=== PATIENT | female | born 1970 | race Caucasian/White ===

== ENCOUNTER 2021-01-17 09:05 | Emergency (ER) | payer MEDICAID, SELFPAY ==
[2021-01-17] VITALS (7 sets, daily range): BP systolic 105–136; BP diastolic 68–89; PULSE 59–74; RESP 14–16; TEMP 36.4–36.7; O2SAT 97–100; BMI 26.0
--- NOTE | 2021-01-17 09:20 | EX.ED.DYSGE1 ---
HPI History of Present Illness Chief Complaint: Headache Detail of Chief Complaint: Patient presents with a headache x5 days Informant: patient Onset/Context/Timing Current Severity: 03/19 Narrative Narrative: Patient presents to the emergency department with 2 separate complaints. Patient states that she has had a headache for about 5 days that is typical of her migraines. Patient has taken Maxalt at home and has not had any improvement of her symptoms. She has had photophobia and nausea but no vomiting. She denies any falls or head injuries or recent illness. Patient also states that she has had abdominal pain for about 2 days in the left upper abdomen that is similar to what she had from prior adhesions that required surgical intervention. Patient denies vomiting. She has had normal bowel movements. Patient tells me that in 2009 she had a Vikram-en-Y gastric bypass surgery. Prior similar symptoms: Yes PFSH [facility] Medical History (Updated 01/17/21 @ 09:56 by Evelyn Saldivar) Fibromyalgia Reactive hypoglycemia Home Medications albuterol sulfate [ProAir HFA] 2 puff INHALATION Q6H PRN 01/17/21 [History Last Taken Unknown] aspirin 81 mg PO DAILY 01/17/21 [History Last Taken Unknown] carvedilol 3.125 mg PO BID 01/17/21 [History Last Taken Unknown] clonazepam 0.5 mg PO BID 01/17/21 [History Last Taken Unknown] gabapentin 300 mg PO BID 01/17/21 [History Last Taken Unknown] gabapentin 900 mg PO QHS 01/17/21 [History Last Taken Unknown] lisinopril 10 mg PO DAILY 01/17/21 [History Last Taken Unknown] multivitamin 1 tab PO DAILY 01/17/21 [History Last Taken Unknown] nadolol 20 mg PO DAILY 01/17/21 [History Last Taken Unknown] pantoprazole 40 mg PO DAILY 01/17/21 [History Last Taken Unknown] prochlorperazine maleate 10 mg PO Q6H PRN 01/17/21 [History Last Taken Unknown] quetiapine 50 mg PO QHS 01/17/21 [History Last Taken Unknown] rizatriptan 5 mg PO Q2H PRN 01/17/21 [History Last Taken Unknown] trazodone 100 mg PO DAILY 01/17/21 [History Last Taken Unknown] venlafaxine 100 mg PO BID 08/10/21 [History Last Taken Unknown] Allergy/AdvReac Type Severity Reaction Status Date / Time No Known Allergies Allergy Verified 01/17/21 09:06 Surgical History (Updated 01/17/21 @ 09:56 by Evelyn Saldivar) History of cholecystectomy History of D&C History of gastric bypass History of hysterectomy History of tonsillectomy Social History Smoking Status: Never smoker ROS ROS ED Constitutional Constitutional ED: Reports systems reviewed and no addt'l complaints, except as documented; Denies body ache(s), change in weight or chills Eyes Eyes: Denies acute decrease in peripheral vision, change in vision, double vision or loss of vision ENT ENT ED: Reports none; Denies ear pain, lip swelling, loss taste/smell, neck pain, otalgia or sore throat Cardiovascular Cardiovascular: Reports none; Denies abdominal pain, chest pain with activity, leg edema, lightheadedness, palpitations, rapid heart rate or syncope Respiratory/Chest Respiratory/Chest: Reports none; Denies change in mental status, dry cough, dyspnea, hemoptysis, shortness of breath at rest or shortness of breath with exertion Gastrointestinal Gastrointestinal: Reports none, abdominal pain and nausea; Denies change in stool character, diarrhea, hematemesis, hematochezia, melena, rectal bleeding or vomiting Genitourinary Genitourinary ED: Reports none; Denies abdominal discomfort, anuria, dysuria, genital pain or polyuria Musculoskeletal Musculoskeletal: Reports none; Denies arthralgias, back pain, difficulty walking, extremity pain, muscle weakness or myalgias Integumentary Reports none; Denies abscess or rash Neurologic Neurologic: Reports none and headache(s); Denies abnormal gait, confusion, focal weakness, frequent falls, loss of vision, numbness, paresthesias, radicular pain, vertigo or weakness Psychiatric Psychiatric: Reports systems reviewed and no addt'l complaints, except as documented and none; Denies behavioral changes, confusion, difficulty concentrating, hallucinations, suicidal ideation, tactile hallucinations or visual hallucinations Endocrine Endocrinology: Denies none, cold intolerance, excessive sweating, fatigue or heat intolerance Hematologic/Lymphatic Hematologic/Lymphatic: Reports none; Denies anemia, easy bleeding or easy bruising Allergic/Immunologic Allergic/Immunologic ED: Denies as per HPI, none, lip swelling, mouth swelling, throat swelling, tongue swelling or hives EXAM Physical Exam Const Vital Signs: 01/17/21 09:06 01/17/21 11:17 01/17/21 14:32 Temperature 97.6 F L Temperature Source Temporal Pulse Rate 65 74 59 L Respiratory Rate 16 16 14 Blood Pressure 123/84 H 136/89 H 119/70 Blood Pressure Mean 97 104 86 Pulse Ox 100 99 99 Oxygen Delivery Method Room Air Positive well nourished and well developed General Appearance ED: well developed and NAD HEENT Reports TM's clear and moist mucous membranes normocephalic and atraumatic; Negative for trauma or tenderness Tympanic Membrane ED: Yes TM's clear Eyes PERRL and EOMs intact bilaterally General Eye ED: Negative for pale conjunctiva or scleral icterus Neck no lymphadenopathy, supple and no JVD General: Negative for tenderness Chest Wall inspection of chest normal and palpation of chest normal Chest: Negative for tenderness Resp normal respiratory effort and clear to auscultation bilaterally Effort and Inspection: Negative for respiratory distress or pain with movement Auscultation: Negative for rhonchi, wheezes or diminished lung sounds Cardio regular rate, regular rhythm, S1 normal heart sound, S2 normal heart sound and no murmurs Peripheral Pulses: pulses 2+ throughout GI normal to inspection, nondistended, normoactive bowel sounds, soft to palpation, non-distended and no masses GI Narrative: Patient has tenderness palpation over the epigastric region left upper quadrant. There are some mild guarding. There is no rebound, rigidity, or peritoneal signs. Palpation: soft Back/Spine no CVA tenderness and no thoracic nor lumbar tenderness Extremity normal to inspection General Extremety ED: Negative for edema General Extremity: Negative for edema Neuro oriented x3, CN's II-XII intact bilaterally, no sensory deficits noted and gait normal Sensorium / Orientation: awake, alert, oriented to person, oriented to place and oriented to time Motor Exam: strength 5/5 throughout and strength abnormal Psych mental status grossly normal Skin no rashes or lesions noted and no wounds MDM MDM MDM Narrative Medical decision making narrative: Results discussed with patient. Patient's headache significantly improved after Reglan, Benadryl, and Toradol. CT scan of the abdomen pelvis showed inflammatory changes at the site of surgical anastomosis with circumferential thickening and mucosal edema involving the proximal jejunal loops in the left upper quadrant. Case discussed with general surgeon on-call Dr. Damaris Shore who asked that we transfer patient to tertiary center to be evaluated by bariatric surgeons. Patient would like to be transferred to [facility] as her last exploratory surgery was at one of their facilities. I discussed case with [facility] that we transfer patient to [place]. I discussed case with hospitalist there who was willing to accept the patient but first wanted to speak with her surgeon before they could accept her. Care of patient turned over to afternoon physician awaiting final acceptance and final disposition for transfer to [facility] facility. Lab Data Attestation: I reviewed the patient's lab results. Labs: Laboratory Results - last 24 hr 01/17/21 01/17/21 01/17/21 09:16 09:16 09:45 WBC 8.0 RBC 4.14 L Hgb 11.5 L Hct 37.3 MCV 90.1 MCH 27.8 MCHC 30.8 L RDW Std Deviation 43.1 RDW Coeff of Edda 13.1 Plt Count 258 MPV 10.5 Immature Gran % (Auto) 0.400 Neut % (Auto) 67.0 Lymph % (Auto) 22.3 [place] % (Auto) 8.9 Eos % (Auto) 1.1 Baso % (Auto) 0.3 Absolute Neuts (auto) 5.4 Absolute Lymphs (auto) 1.78 Nucleated RBC % 0 Sodium 141 Potassium 3.8 Chloride 106 Carbon Dioxide 32.0 Anion Gap 3 L BUN 12 Creatinine 0.67 Estim Creat Clear Calc 79.45 Est GFR (MDRD) Af Amer 120 Est GFR (MDRD) Non-Af 99 BUN/Creatinine Ratio 18.0 Glucose 69 L Lactic Acid 0.1 L Calcium 8.4 L Total Bilirubin 0.30 AST 23 ALT 38 Alkaline Phosphatase 62 Total Protein 6.6 Albumin 3.3 Globulin 3.3 Albumin/Globulin Ratio 1.0 Lipase 550 H Radiography Diagnostic Testing: Radiology Impression Abdomen/Pelvis CT 01/17/21 11:45 IMPRESSION: The patient is status post cholecystectomy and gastric bypass surgery. Mild degree of circumferential thickening and mucosal edema involving the proximal jejunal loops in the left upper quadrant. This is at the site of surgical anastomosis. Electronically Signed: Edmundo Klein MD at 12:42 EDT , Service support , Discharge Plan Triage Chief Complaint: Headache ED Provider: Heike Devlin Dx/Rx/DC Orders Instructions: ED, Migraine (Classical), Abdominal Pain Prescriptions: No Action multivitamin Tablet 1 tab PO DAILY RF: 0 clonazepam 0.5 mg Tablet 0.5 mg PO BID RF: 0 prochlorperazine maleate 10 mg Tablet 10 mg PO Q6H PRN (Reason: Nausea) RF: 0 carvedilol 3.125 mg Tablet 3.125 mg PO BID RF: 0 nadolol 20 mg Tablet 20 mg PO DAILY RF: 0 venlafaxine 100 mg Tablet 100 mg PO BID RF: 0 trazodone 100 mg Tablet 100 mg PO DAILY RF: 0 pantoprazole 40 mg Tablet,Delayed Release (Dr/Ec) 40 mg PO DAILY RF: 0 lisinopril 10 mg Tablet 10 mg PO DAILY RF: 0 gabapentin 300 mg Capsule 300 mg PO BID RF: 0 aspirin 81 mg Tablet 81 mg PO DAILY RF: 0 albuterol sulfate [ProAir HFA] 90 mcg/actuation Hfa Aerosol Inhaler 2 puff INHALATION Q6H PRN (Reason: Shortness Of Breath) RF: 0 rizatriptan 5 mg Tablet 5 mg PO Q2H PRN (Reason: Headache) RF: 0 gabapentin 300 mg Tablet 900 mg PO QHS RF: 0 quetiapine 50 mg Tablet Extended Release 24 Hr 50 mg PO QHS RF: 0 Referrals: ODILIA VILLANUEVA [Other] Disposition Disposition: Transfer to Another Type [facility]
[2021-01-17] MEDS: Ketorolac 15 MG/ML Vial IV (09:40)
[2021-01-17] MEDS: DiphenhydrAMINE 50 MG/ML Syringe 25 MG IV (09:40)
[2021-01-17] MEDS: Metoclopramide 10 MG/2 ML Vial IV (09:41)
--- NOTE | 2021-01-17 09:47 | ED.RN ---
PT IV INFILTRATED IN [facility]. IV REMOVED AND RESTARTED
[2021-01-17 09:50] LABS: Absolute Lymphocyte Count 1.78 X10^3/uL (0.83-4.51); Absolute Neutrophil Count 5.4 X10^3/uL (2.0-7.7); Basophil# 0.02 X10^3/uL; Basophil% 0.3 % (0-1); Eosinophil# 0.09 X10^3/uL; Eosinophils% 1.1 % (0-5); Hematocrit 37.3 % (37-47); Hemoglobin 11.5 g/dL (12.0-15.0); Lymphocyte # 1.78 X10^3/ul (0.83-4.51); Lymphocyte % 22.3 % (19-41); Mean Corp Hgb Conc 30.8 g/dL (32-36); Mean Corpuscular Hgb 27.8 pg (27.0-32.0); Mean Corpuscular Volume 90.1 fL (81-99); Mean Platelet Vol. 10.5 fl (6.2-12.0); Monocyte# 0.71 X10^3/uL; Monocyte% 8.9 % (0-10); NRBC Flagged by Analyzer 0 % (0-5); Neutrophil # 5.36 X10^3/uL (2.7-7.7); Platelet Count 258 K/mm3 (150-450); RBC Distribution Width CV 13.1 % (11.6-14.6); RBC Distribution Width SD 43.1 fl (35.1-43.9); Red Blood Count 4.14 M/mm3 (4.2-5.4)
[2021-01-17 10:02] LABS: AST(SGOT) 23 U/L (15-37); Alanine Aminotransfer ALT/SGPT 38 U/L (13-56); Albumin, Serum 3.3 g/dL (3.2-5.0); Alkaline Phosphatase 62 U/L (45-117); Anion Gap 3 (5-15); BUN 12 mg/dL (7-18); Calcium,Total 8.4 mg/dL (8.5-10.1); Chloride 106 mmol/L (98-107); Creatinine, Serum 0.67 mg/dL (0.55-1.02); EST Glomerular Filtration Rate 99 mL/min (>60); Est Glom Filt Rate - Afr Amer 120 mL/min (>60); Estimated Creatinine Clearance 79.45 ml/min; Globulin 3.3 g/dL (2.2-4.2); Glucose 69 mg/dL (74-106); Lipase 550 U/L (73-393); Potassium 3.8 mmol/L (3.5-5.1); Protein, Total 6.6 g/dL (6.4-8.2); Sodium Level 141 mmol/L (136-145)
[2021-01-17 10:35] LABS: Lactic Acid 0.1 mmol/L (0.4-1.9)
--- NOTE | 2021-01-17 11:45 | CT_ITS ---
STUDY: CT ABDOMEN AND PELVIS WITH CONTRAST REASON FOR EXAM: Female, 50 years old. Abdominal pain RADIATION DOSAGE (If Supplied By Facility): CTDIvol = ( 13.09 ) mGy, DLP = ( 480.13 ) mGycm TECHNIQUE: Transaxial images were obtained from the dome of the diaphragm to the symphysis pubis without oral contrast. Oral and amp; IV Gastrografin and amp; 100mL Isovue-300 was administered. Sagittal and coronal images were reconstructed. Individualized dose optimization techniques were used for this CT. COMPARISON: None. FINDINGS: The visualized lung bases are unremarkable. The visualized portions of the heart are within normal limits. Mildly dilated central intrahepatic biliary ducts most likely secondary to prior cholecystectomy. The proximal common bile duct measures 9.4 mm in transverse dimension. There are surgical clips in the gallbladder fossa consistent with a prior cholecystectomy. Normal spleen. Normal pancreas. There is a small, circumscribed, smooth, low attenuation left adrenal mass, consistent with an adrenal adenoma. It measures 8.7 mm. Normal right adrenal gland. Normal right kidney. Normal left kidney. The patient is status post subtotal gastrectomy and gastric bypass surgery. Mild degree of pleural thickening of the proximal jejunal loops in the left upper quadrant. Normal colon. The appendix is visualized and appears normal. Normal abdominal aorta. Normal inferior vena cava. Normal retroperitoneum. Normal urinary bladder. There is absence of the uterus consistent with a prior hysterectomy. Small amount of free fluid is seen in the cul-de-sac. Normal abdominal wall. There are mild degenerative changes of the visualized lumbar spine. CT/Abdomen/Pelvis WITH Contrast IMPRESSION: The patient is status post cholecystectomy and gastric bypass surgery. Mild degree of circumferential thickening and mucosal edema involving the proximal jejunal loops in the left upper quadrant. This is at the site of surgical anastomosis. Electronically Signed: Edmundo Klein MD at 12:42 EDT , Service support ,
--- NOTE | 2021-01-17 19:33 | ED.RN ---
CALLED TO CHECK ON A BED AND THE CLINIC SAID THEY WOULD CALL US WHEN THEY HAD A BED
--- NOTE | 2021-01-18 01:14 | ED.RN ---
PHYSICIANS CAME TO [employer] SALES REPRESENTATIVE A PATIENT, THAT REQUIRED THE WHOLE ENTIRE CREW TO GO ON. I DID CALL PHYSICIANS AND ASKED THEM TO PLEASE OUTSOURCE THIS THIS RIDE TIME WAS PUSHED BACK AND WE DO NOT HAVE A ETA CURRENTLY.
[2021-01-18 01:15] VITALS: BP 140/80; PULSE 61; RESP 16; O2SAT 98
[2021-01-18] MEDS: Metoclopramide 10 MG/2 ML Vial 5 MG IV (01:18)
[2021-01-18] MEDS: Ketorolac 15 MG/ML Vial IV (01:18)
[2021-01-18] MEDS: DiphenhydrAMINE 50 MG/ML Syringe 25 MG IV (01:19)
[2021-01-18 01:21] VITALS: BP 134/82; PULSE 98; RESP 16; TEMP 36.6; O2SAT 98
[2021-01-18 04:19] VITALS: RESP 14
[2021-01-18 05:00] VITALS: BP 146/84; PULSE 63; RESP 15; TEMP 37.1; O2SAT 98
[2021-01-18] MEDS: fentaNYL 100 MCG/2 ML Ampul 25 MCG IV (05:04)
== END 2021-01-18 05:51 | disposition other institution (70) ==
PROVIDERS: Emergency Provider Emergency Medicine
DX: R51.9 Headache, unspecified (principal); R10.9 Unspecified abdominal pain; M79.7 Fibromyalgia; Z98.84 Bariatric surgery status; Z79.82 Long term (current) use of aspirin; Z79.899 Other long term (current) drug therapy; Z90.49 Acquired absence of other specified parts of digestive tract; Z90.710 Acquired absence of both cervix and uterus
CPT/HCPCS: 74177; 80053; 83605; 83690; 85025; 87426; 96374; 96375; 96376; 99285; J7030; J7040; Q9967; A4216

== ENCOUNTER → 2021-05-12 10:32 | Outpatient (CLI) | payer MEDICAID, SELFPAY ==
[2021-05-12 11:07] LABS: Absolute Lymphocyte Count 1.92 X10^3/uL (0.83-4.51); Absolute Neutrophil Count 2.2 X10^3/uL (2.0-7.7); Basophil# 0.03 X10^3/uL; Basophil% 0.7 % (0-1); Eosinophil# 0.08 X10^3/uL; Eosinophils% 1.7 % (0-5); Hematocrit 33.3 % (37-47); Hemoglobin 10.7 g/dL (12.0-15.0); Lymphocyte # 1.92 X10^3/ul (0.83-4.51); Lymphocyte % 41.8 % (19-41); Mean Corp Hgb Conc 32.1 g/dL (32-36); Mean Corpuscular Hgb 27.7 pg (27.0-32.0); Mean Corpuscular Volume 86.3 fL (81-99); Mean Platelet Vol. 10.1 fl (6.2-12.0); Monocyte# 0.32 X10^3/uL; NRBC Flagged by Analyzer 0 % (0-5); Neutrophil # 2.23 X10^3/uL (2.7-7.7); Neutrophil % 48.6 % (47-70); Platelet Count 247 K/mm3 (150-450); RBC Distribution Width CV 13.2 % (11.6-14.6); RBC Distribution Width SD 41.4 fl (35.1-43.9); Red Blood Count 3.86 M/mm3 (4.2-5.4); White Blood Count 4.6 K/mm3 (4.4-11.0)
[2021-05-12 11:41] LABS: Vitamin D,25 Hydroxy 36.5 ng/mL
[2021-05-12 11:54] LABS: ALB/GLOB Ratio 1.1 RATIO (0.9-2.4); AST(SGOT) 28 U/L (15-37); Alanine Aminotransfer ALT/SGPT 36 U/L (13-56); Albumin, Serum 3.6 g/dL (3.2-5.0); Alkaline Phosphatase 74 U/L (45-117); Anion Gap 6 (5-15); BUN 11 mg/dL (7-18); BUN/Creat Ratio 16.9 RATIO (10-20); Calcium,Total 8.4 mg/dL (8.5-10.1); Chloride 104 mmol/L (98-107); Creatinine, Serum 0.65 mg/dL (0.55-1.02); EST Glomerular Filtration Rate 102 mL/min (>60); Est Glom Filt Rate - Afr Amer 124 mL/min (>60); Globulin 3.4 g/dL (2.2-4.2); Glucose 70 mg/dL (74-106); Potassium 3.9 mmol/L (3.5-5.1); Sodium Level 138 mmol/L (136-145); Thyroid Stim Hormone (TSH) 0.63 uIU/mL (0.358-3.74)
== END ==
PROVIDERS: PCP Family Medicine Geriatric Medicine; Visit Provider Family Medicine Geriatric Medicine
DX: I10 Essential (primary) hypertension (principal)
CPT/HCPCS: 36415; 80053; 82306; 84443; 85025

== ENCOUNTER → 2021-05-18 16:47 | Outpatient (CLI) | payer MEDICAID, SELFPAY ==
[2021-05-18 17:22] LABS: Absolute Lymphocyte Count 1.13 X10^3/uL (0.83-4.51); Absolute Neutrophil Count 3.1 X10^3/uL (2.0-7.7); Basophil# 0.03 X10^3/uL; Basophil% 0.6 % (0-1); Eosinophil# 0.08 X10^3/uL; Eosinophils% 1.7 % (0-5); Hematocrit 35.3 % (37-47); Hemoglobin 11.1 g/dL (12.0-15.0); Lymphocyte # 1.13 X10^3/ul (0.83-4.51); Lymphocyte % 23.5 % (19-41); Mean Corp Hgb Conc 31.4 g/dL (32-36); Mean Corpuscular Hgb 26.8 pg (27.0-32.0); Mean Corpuscular Volume 85.3 fL (81-99); Mean Platelet Vol. 9.7 fl (6.2-12.0); Monocyte# 0.42 X10^3/uL; Monocyte% 8.8 % (0-10); NRBC Flagged by Analyzer 0 % (0-5); Neutrophil # 3.13 X10^3/uL (2.7-7.7); Neutrophil % 65.2 % (47-70); Platelet Count 170 K/mm3 (150-450); RBC Distribution Width SD 40.4 fl (35.1-43.9); Red Blood Count 4.14 M/mm3 (4.2-5.4); White Blood Count 4.8 K/mm3 (4.4-11.0)
[2021-05-18 17:40] LABS: Anion Gap 6 (5-15); BUN 12 mg/dL (7-18); BUN/Creat Ratio 17.3 RATIO (10-20); Calcium,Total 8.8 mg/dL (8.5-10.1); Chloride 105 mmol/L (98-107); EST Glomerular Filtration Rate 95 mL/min (>60); Est Glom Filt Rate - Afr Amer 115 mL/min (>60); Glucose 74 mg/dL (74-106); Potassium 4.1 mmol/L (3.5-5.1); Sodium Level 138 mmol/L (136-145)
== END ==
PROVIDERS: PCP Family Medicine Geriatric Medicine; Referring Provider Family Medicine Geriatric Medicine; Visit Provider Family Medicine Geriatric Medicine
DX: I10 Essential (primary) hypertension (principal)
CPT/HCPCS: 36415; 80048; 85025; 87086; 87088

== ENCOUNTER → 2021-05-19 08:51 | Outpatient (CLI) | payer MEDICAID, SELFPAY ==
--- NOTE | 2021-05-19 08:54 | CT_ITS ---
STUDY: CT ABDOMEN AND PELVIS WITH CONTRAST REASON FOR EXAM: Female, 50 years old. ABD PAIN. History of prior gastric bypass surgery. RADIATION DOSAGE (If Supplied By Facility): CTDIvol = ( 14.93 ) mGy, DLP = ( 513.96 ) mGycm TECHNIQUE: Transaxial images were obtained from the dome of the diaphragm to the symphysis pubis with oral contrast. Oral and amp; IV Gastrografin and amp; 100mL Isovue-300 was administered. Sagittal and coronal images were reconstructed. Individualized dose optimization techniques were used for this CT. COMPARISON: Comparison is made with prior study dated 01/17/2021. FINDINGS: The visualized lung bases are unremarkable. The visualized portions of the heart are within normal limits. Normal liver. There are surgical clips in the gallbladder fossa consistent with a prior cholecystectomy. Normal spleen. Normal pancreas. Normal bilateral adrenal glands. Normal right kidney. Normal left kidney. The patient is status post gastric bypass surgery. There is evidence of intussusception in the proximal jejunum. Normal colon. The appendix is visualized and appears normal. Normal abdominal aorta. Normal inferior vena cava. Normal retroperitoneum. Normal urinary bladder. There is absence of the uterus consistent with a prior hysterectomy. Normal abdominal wall. Normal osseous structures. CT/Abdomen/Pelvis WITH Contrast IMPRESSION: Intussusception in the proximal jejunum. Electronically Signed: Edmundo Klein MD at 12:08 EST , Service support ,
== END ==
PROVIDERS: PCP Family Medicine Geriatric Medicine; Referring Provider Family Medicine Geriatric Medicine; Visit Provider Family Medicine Geriatric Medicine
DX: R10.9 Unspecified abdominal pain (principal)
CPT/HCPCS: 74177; Q9967

== ENCOUNTER 2021-06-27 14:06 | Outpatient (CLI) | payer MEDICAID, SELFPAY ==
--- NOTE | 2021-06-27 14:10 | RAD_ITS ---
STUDY: X-RAY - UNILATERAL RIBS ( LEFT ) WITH CHEST REASON FOR EXAM: Female, 50 years old. RIB PAIN TECHNIQUE - RIBS: 4 view(s) of the ribs. TECHNIQUE - CHEST: Single frontal view of the chest. COMPARISON: None. FINDINGS - RIBS: Normal visualized ribs without a demonstrated fracture. FINDINGS - CHEST: The lungs are clear and expanded. There is no demonstrated pleural abnormality. Normal size heart. Normal mediastinum and angelia. Normal visualized pulmonary arteries. Normal visualized aortic arch and descending thoracic aorta. Normal visualized thoracic spine. Normal visualized ribs, clavicles, and shoulders. There is no demonstrated abnormality of the visualized soft tissue structures of the upper abdomen. RAD/Ribs Uni Min 3V w/PA Chest IMPRESSION: RIBS: Normal x-ray examination of the ribs. CHEST: Normal x-ray examination of the chest. Electronically Signed: Deshawn Anne DO at 3:51 EST Tel , Service support ,
== END 2021-06-27 23:59 | disposition short-term general hospital (02) ==
PROVIDERS: PCP Family Medicine Geriatric Medicine; Referring Provider Family Medicine Geriatric Medicine; Visit Provider Family Medicine Geriatric Medicine
DX: R07.89 Other chest pain (principal)
CPT/HCPCS: 71101

== ENCOUNTER 2021-07-24 08:37 | Day surgery (SDC) | payer MEDICAID, SELFPAY ==
--- NOTE | 2021-07-24 | COLBX_PTH ---
PATIENT: JOSE ROSALES LOC: EN U#:[id number] AGE/SX: 50/F ROOM: RE07/24/[address]: Dr. Shabbir Lubin DO : 1970 BED: DIS: 07/24/2021 SPEC #: [id number] RECD: 07/24/21 13:15 STATUS: ODELL ZENON #: [id number] LEE ANN: 07/24/21 00:[address]: Shabbir Lubin DEPT: SURGICAL PATHOLOGY RECD BY: Benjie Chung ENTERED: 07/24/21 13:16 SP TYPE: COLON BX ANA M DR: Dr. Alexx Hall MD Tissues: COLON BIOPSY Procedures: Surgery Specimen Level IV HEADER OPERATION: Colonoscopy ? 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 SJ:jony 07/25/2021 MICROSCOPIC DESCRIPTION Slides are reviewed. GROSS DESCRIPTION Received in fixative is one container labeled with the patient's name and designated random colon. The specimen consists of multiple irregular fragments of light rg soft tissue that in aggregate measure 2 x 0.5 x 0.1 cm. The specimen is totally submitted in one cassette. / OTF:jony 07/24/2021 TC:5 CPT: 07640
[2021-07-24 09:05] VITALS: BP 136/74; PULSE 64; RESP 16; TEMP 36.3; O2SAT 100; BMI 25.0
[2021-07-24] MEDS: Lactated Ringers 1,000 ML 15 ML IV (09:23)
--- NOTE | 2021-07-24 11:08 | HP.PCM_ITS ---
History and Physical Date of Admission: 07/24/21 50-year-old presents here for evaluation of worsening abdominal pain. She has a history of of gastric bypass, fibromyalgia, anxiety, depression and chronic pain syndrome who has been worsening abdominal pain along with change in bowel habits. She has alternating constipation as diarrhea. She did have a colonoscopy over 10 years ago and that was normal. P. Patient denies vomiting. She has had normal bowel movements. Patient tells me that in 2009 she had a Vikram-en-Y gastric bypass surgery. PFSH PFSH Medical History Fibromyalgia Reactive hypoglycemia Allergy/AdvReac Type Severity Reaction Status Date / Time No Known Allergies Allergy Verified History of cholecystectomy History of D&C History of gastric bypass History of hysterectomy History of tonsillectomy Social History Smoking Status: Never smoker ROS ROS ED Constitutional Constitutional ED: Reports systems reviewed and no addt'l complaints, except as documented; Denies body ache(s), change in weight or chills Eyes Eyes: Denies acute decrease in peripheral vision, change in vision, double visio n or loss of vision ENT ENT ED: Reports none; Denies ear pain, lip swelling, loss taste/smell, neck pain, otalgia or sore throat Cardiovascular Cardiovascular: Reports none; Denies abdominal pain, chest pain with activity, leg edema, lightheadedness, palpitations, rapid heart rate or syncope Respiratory/Chest Respiratory/Chest: Reports none; Denies change in mental status, dry cough, dyspnea, hemoptysis, shortness of breath at rest or shortness of breath with exertion Gastrointestinal Gastrointestinal: Reports none, abdominal pain and nausea; Denies change in stool character, diarrhea, hematemesis, hematochezia, melena, rectal bleeding or vomiting Genitourinary Genitourinary ED: Reports none; Denies abdominal discomfort, anuria, dysuria, genital pain or polyuria Musculoskeletal Musculoskeletal: Reports none; Denies arthralgias, back pain, difficulty walking, extremity pain, muscle weakness or myalgias Integumentary Reports none; Denies abscess or rash Neurologic Neurologic: Reports none and headache(s); Denies abnormal gait, confusion, focal weakness, frequent falls, loss of vision, numbness, paresthesias, radicular pain, vertigo or weakness Psychiatric Psychiatric: Reports systems reviewed and no addt'l complaints, except as documented and none; Denies behavioral changes, confusion, difficulty concentrating, hallucinations, suicidal ideation, tactile hallucinations or visual hallucinations Endocrine Endocrinology: Denies none, cold intolerance, excessive sweating, fatigue or heat intolerance Hematologic/Lymphatic Hematologic/Lymphatic: Reports none; Denies anemia, easy bleeding or easy bruising Allergic/Immunologic Allergic/Immunologic ED: Denies as per HPI, none, lip swelling, mouth swelling, throat swelling, tongue swelling or hives EXAM Physical Exam Positive well nourished and well developed General Appearance ED: well developed and NAD HEENT Reports TM's clear and moist mucous membranes normocephalic and atraumatic; Negative for trauma or tenderness Tympanic Membrane ED: Yes TM's clear Eyes PERRL and EOMs intact bilaterally General Eye ED: Negative for pale conjunctiva or scleral icterus Neck no lymphadenopathy, supple and no JVD General: Negative for tenderness Chest Wall inspection of chest normal and palpation of chest normal Chest: Negative for tenderness Resp normal respiratory effort and clear to auscultation bilaterally Effort and Inspection: Negative for respiratory distress or pain with movement Auscultation: Negative for rhonchi, wheezes or diminished lung sounds Cardio regular rate, regular rhythm, S1 normal heart sound, S2 normal heart sound and no murmurs Peripheral Pulses: pulses 2+ throughout GI normal to inspection, nondistended, normoactive bowel sounds, soft to palpation, non-distended and no masses GI Narrative: . There is no rebound, rigidity, or peritoneal signs. Palpation: soft Back/Spine no CVA tenderness and no thoracic nor lumbar tenderness Extremity normal to inspection General Extremety ED: Negative for edema General Extremity: Negative for edema Neuro oriented x3, CN's II-XII intact bilaterally, no sensory deficits noted and gait normal Sensorium / Orientation: awake, alert, oriented to person, oriented to place and oriented to time Motor Exam: strength 5/5 throughout and strength abnormal Psych mental status grossly normal Skin no rashes or lesions noted and no wounds CT scan of the abdomen pelvis showed inflammatory changes at the site of surgical anastomosis with circumferential thickening and mucosal edema involving the proximal jejunal loops in the left upper quadrant. She says that the pain when she had CT scan was different than the pain she has now. This more associated with constipation or diarrhea. She will undergo colonoscopy. She was explained alternatives, risk, benefits including outstanding bleeding, infection, sepsis, perforation, need for emergent . She have an ASA of 2.
[2021-07-24 11:10] VITALS: BP 117/70; BP 136/74; PULSE 67; RESP 14; TEMP 36.4; O2SAT 100
[2021-07-24 11:15] VITALS: BP 122/78; BP 136/74; PULSE 65; RESP 16; O2SAT 100
--- NOTE | 2021-07-24 11:16 | OP.CCLET_ITS ---
02/26/2022 Alexx Hall MD [address] [place] [address] Re : Colonoscopy procedure for Maria Del Rosario Gamboa Dear Dr. Hall This procedure was performed on Saturday, July 24, 2021. My impressions and recommendations are as follows: Impressions : - Preparation of the colon was poor. - Redundant colon. - Stool in the recto-sigmoid colon, in the sigmoid colon, in the descending colon, at the splenic flexure, in the transverse colon and in the cecum. Biopsied. Recommendations : - Discharge patient to home. - Resume previous diet. - Continue present medications. - Await pathology results. - Repeat colonoscopy for surveillance based on pathology results. - Return to GI office tomorrow. My findings are described in the full procedure note, which is enclosed. If I can be of further assistance, please feel free to contact me at . Sincerely, Shabbir Lubin, 07/24/2021 11:15:20 AM This report has been signed electronically.
--- NOTE | 2021-07-24 11:16 | OP.COLON_ITS ---
Patient Name: Maria Del Rosario Gamboa Procedure Date: 07/24/2021 10:30 AM Date of : 1970 Age: 50 Procedure: Colonoscopy Indications: Abdominal pain in the left lower quadrant, Chronic diarrhea Providers: Shabbir Lubin DO Patient Profile: This is a 50 year old female. Refer to note in patient chart for documentation of history and physical. Last Colonoscopy: date unknown. Unable to locate last colonoscopy report. Complications: No immediate complications. Procedure: Pre-Anesthesia Assessment: - Prior to the procedure, a History and Physical was performed, and patient medications and allergies were reviewed. The risks and benefits of the procedure and the sedation options and risks were discussed with the patient. All questions were answered and informed consent was obtained. Patient identification and proposed procedure were verified by the physician in the pre-procedure area. Mental Status Examination: alert and oriented. Airway Examination: normal oropharyngeal airway and neck mobility. Respiratory Examination: clear to auscultation. CV Examination: normal. Prophylactic Antibiotics: The patient does not require prophylactic antibiotics. Prior Anticoagulants: The patient has taken no previous anticoagulant or antiplatelet agents. ASA Grade Assessment: II - A patient with mild systemic disease. After reviewing the risks and benefits, the patient was deemed in satisfactory condition to undergo the procedure. The anesthesia plan was to use moderate sedation / analgesia (conscious sedation). Immediately prior to administration of medications, the patient was re-assessed for adequacy to receive sedatives. The heart rate, respiratory rate, oxygen saturations, blood pressure, adequacy of pulmonary ventilation, and response to care were monitored throughout the procedure. The physical status of the patient was re-assessed after the procedure. After I obtained informed consent, the scope was passed under direct vision. Throughout the procedure, the patient's blood pressure, pulse, and oxygen saturations were monitored continuously. The colonoscope was introduced through the anus and advanced to the terminal ileum. The colonoscopy was performed without difficulty. The patient tolerated the procedure well. The quality of the bowel preparation was poor. Moderate Sedation: Moderate (conscious) sedation was administered by the endoscopy nurse and supervised by the endoscopist. The patient's oxygen saturation, heart rate, blood pressure and response to care were monitored. Total physician intraservice time was 15 minutes. Scope In: 10:40:47 AM Scope Withdrawal Time 0 hours 8 minutes 58 seconds Scope Out: 11:03:23 AM Total Procedure Duration Time 0 hours 22 minutes 36 seconds Findings: The perianal and digital rectal examinations were normal. The splenic flexure was significantly redundant. A moderate amount of stool was found in the recto-sigmoid colon, in the sigmoid colon, in the descending colon, at the splenic flexure, in the transverse colon and in the cecum, precluding visualization. Biopsies were taken with a cold forceps for histology. Verification of patient identification for the specimen was done. Estimated blood loss was minimal. Impression: - Preparation of the colon was poor. - Redundant colon. - Stool in the recto-sigmoid colon, in the sigmoid colon, in the descending colon, at the splenic flexure, in the transverse colon and in the cecum. Biopsied. Recommendation: - Discharge patient to home. - Resume previous diet. - Continue present medications. - Await pathology results. - Repeat colonoscopy for surveillance based on pathology results. - Return to GI office tomorrow. Procedure Code(s): --- Professional --- 39462, Colonoscopy, flexible; with biopsy, single or multiple 57329, 59, Moderate sedation services provided by the same physician or other qualified health daycare provider performing the diagnostic or therapeutic service that the sedation supports, requiring the presence of an independent trained observer to assist in the monitoring of the patient's level of consciousness and physiological status; initial 15 minutes of intraservice time, patient age 5 years or older CPT copyright 2017 [employer]. All rights reserved. The codes documented in this report are preliminary and upon editor in chief review may be revised to meet current compliance requirements. Shabbir Lubin DO 07/24/2021 11:15:20 AM This report has been signed electronically. Number of Addenda: 1 Note Initiated On: 07/24/2021 10:30 AM Addendum Number: 1 Addendum Date: 02/26/2022 6:49:59 AM MAC was used for sedation during this procedure. Shabbir Lubin DO 02/26/2022 6:50:03 AM This report has been signed electronically.
[2021-07-24 11:20] VITALS: BP 134/84; BP 136/74; PULSE 61; RESP 16; O2SAT 100
[2021-07-24 11:25] VITALS: BP 136/74; BP 142/86; PULSE 60; RESP 16; TEMP 36.6; O2SAT 100
[2021-07-24 12:00] VITALS: BP 136/74
== END 2021-07-24 23:59 | disposition home or self-care (01) ==
LOC: EN 08:38 → AC 08:42
PROVIDERS: PCP Family Medicine Geriatric Medicine; Referring Provider Family Medicine Geriatric Medicine; Visit Provider Internal Medicine Gastroenterology
PROC: 0DJD8ZZ Inspection of Lower Intestinal Tract, Via Natural or Artificial Opening Endoscopic (ICD-10-PCS; CPT 45378; principal; 2021-07-24 09:55)
DX: R10.32 Left lower quadrant pain (principal); Q43.8 Other specified congenital malformations of intestine; Z98.84 Bariatric surgery status; R19.7 Diarrhea, unspecified
CPT/HCPCS: 45380; 88305; J7120; J2405

== ENCOUNTER 2021-08-10 08:49 | Outpatient (CLI) | payer MEDICAID, SELFPAY ==
[2021-08-10 12:46] LABS: Absolute Lymphocyte Count 1.47 X10^3/uL (0.83-4.51); Basophil# 0.02 X10^3/uL; Basophil% 0.5 % (0-1); Eosinophil# 0.03 X10^3/uL; Eosinophils% 0.8 % (0-5); Hematocrit 35.1 % (37-47); Hemoglobin 11.1 g/dL (12.0-15.0); Lymphocyte # 1.47 X10^3/ul (0.83-4.51); Lymphocyte % 38.1 % (19-41); Mean Corp Hgb Conc 31.6 g/dL (32-36); Mean Corpuscular Hgb 26.4 pg (27.0-32.0); Mean Corpuscular Volume 83.4 fL (81-99); Mean Platelet Vol. 12.9 fl (6.2-12.0); Monocyte# 0.31 X10^3/uL; NRBC Flagged by Analyzer 0 % (0-5); Neutrophil # 2.03 X10^3/uL (2.7-7.7); Neutrophil % 52.6 % (47-70); Platelet Count 274 K/mm3 (150-450); RBC Distribution Width SD 42.5 fl (35.1-43.9); Red Blood Count 4.21 M/mm3 (4.2-5.4); White Blood Count 3.9 K/mm3 (4.4-11.0)
[2021-08-10 12:48] LABS: Vitamin D,25 Hydroxy 35.1 ng/mL
[2021-08-10 12:56] LABS: AST(SGOT) 28 U/L (15-37); Alanine Aminotransfer ALT/SGPT 39 U/L (13-56); Albumin, Serum 3.6 g/dL (3.2-5.0); Alkaline Phosphatase 66 U/L (45-117); Anion Gap 2 (5-15); BUN 9 mg/dL (7-18); BUN/Creat Ratio 10.8 RATIO (10-20); Calcium,Total 8.8 mg/dL (8.5-10.1); Chloride 108 mmol/L (98-107); Creatinine, Serum 0.83 mg/dL (0.55-1.02); EST Glomerular Filtration Rate 77 mL/min (>60); Est Glom Filt Rate - Afr Amer 93 mL/min (>60); Globulin 3.5 g/dL (2.2-4.2); Glucose 72 mg/dL (74-106); Potassium 3.9 mmol/L (3.5-5.1); Protein, Total 7.1 g/dL (6.4-8.2); Sodium Level 141 mmol/L (136-145); Thyroid Stim Hormone (TSH) 0.47 uIU/mL (0.358-3.74)
== END 2021-08-10 23:59 | disposition home or self-care (01) ==
LOC: POLAB3 08:50
PROVIDERS: PCP Family Medicine Geriatric Medicine; Visit Provider Family Medicine Geriatric Medicine
DX: E55.9 Vitamin D deficiency, unspecified (principal); R53.83 Other fatigue
CPT/HCPCS: 36415; 80053; 82306; 84443; 85025

== ENCOUNTER 2021-09-06 12:18 | Outpatient (CLI) | payer MEDICAID, SELFPAY | END 2021-09-06 23:59 | disposition home or self-care (01) | LOC: PSN 12:19 | PROVIDERS: PCP Family Medicine Geriatric Medicine; Referring Provider Family Medicine Geriatric Medicine; Visit Provider Family Medicine Geriatric Medicine | DX: R68.83 Chills (without fever) (principal); Z20.822 Contact with and (suspected) exposure to COVID-19 | CPT/HCPCS: 87635; 87804; 87807; C9803; U0003; U0005 ==

== ENCOUNTER → 2021-12-25 | Outpatient (CLI) | payer MEDICAID, SELFPAY ==
[2021-12-25 10:24] LABS: Vitamin B12 390 pg/mL (211-911)
[2021-12-25 10:44] LABS: Ferritin 5 ng/mL (8-252); Iron 36 ug/dL (50-170)
== END | disposition home or self-care (01) ==
PROVIDERS: PCP Family Medicine Geriatric Medicine; Referring Provider Psychiatry & Neurology Neurology; Visit Provider Psychiatry & Neurology Neurology
DX: R53.83 Other fatigue (principal); M79.7 Fibromyalgia; Z86.2 Personal history of diseases of the blood and blood-forming organs and certain disorders involving the immune mechanism
CPT/HCPCS: 36415; 82607; 82728; 82746; 83540; 84425

== ENCOUNTER → 2022-01-08 | Outpatient (CLI) | payer MEDICAID, SELFPAY ==
--- NOTE | 2022-01-08 15:31 | MRI_ITS ---
EXAM: MR HEAD WITHOUT AND WITH INTRAVENOUS CONTRAST CLINICAL INDICATION: Migraine headaches; family Hx of cerebral aneurysm TECHNIQUE: Multiplanar and multisequence MR images of the brain were obtained without and with intravenous contrast. This report was created using [employer] report [employer] technology. CONTRAST: 10ml IV Dotarem COMPARISON: None. FINDINGS: BRAIN AND EXTRA-AXIAL SPACES: Unremarkable. No intra- or extra-axial hemorrhage. No evidence of acute infarct. No intracranial mass or mass effect. There is preservation of the [place]/white matter interface. Posterior fossa structures are unremarkable. Ventricles are appropriate for age. No hydrocephalus. Basal cisterns are patent. SELLA: Unremarkable. Normal sella turcica, pituitary gland, infundibular stalk, optic chiasm and hypothalamus. AUDITORY SYSTEM: Unremarkable. The internal auditory canals are patent. BONES/JOINTS: Unremarkable. No discrete lytic or blastic abnormalities. SINUSES: Unremarkable as visualized. Clear. MASTOID AIR CELLS: Unremarkable as visualized. Clear. ORBITS: Unremarkable as visualized. Both globes, extraocular muscles, optic nerves and retrobulbar fat appear unremarkable. VASCULATURE: Unremarkable as visualized. Normal flow voids in the major intracranial circulation. MRI/Brain W/WO Contrast IMPRESSION: Negative MRI brain without and with intravenous contrast. Electronically Signed: Ryan Tripp MD at 17:14 EDT ,
--- NOTE | 2022-01-08 15:31 | MRI_ITS ---
EXAM: MR ANGIOGRAPHY HEAD WITHOUT INTRAVENOUS CONTRAST CLINICAL INDICATION: Family history of cerebral aneurysm TECHNIQUE: Routine [place]/brain 3D time of flight MR angiogram protocol was performed without intravenous contrast. This report was created using [employer] report [employer] technology. COMPARISON: None. FINDINGS: RIGHT INTERNAL CAROTID ARTERY: No acute findings. No significant stenosis at the intracranial/visualized segments. No aneurysm. RIGHT ANTERIOR CEREBRAL ARTERY: Unremarkable. No significant stenosis at the visualized segments. Anterior communicating artery is present. No aneurysm. RIGHT MIDDLE CEREBRAL ARTERY: Unremarkable. No significant stenosis at the visualized segments. No aneurysm. RIGHT POSTERIOR CEREBRAL ARTERY: Unremarkable. No significant stenosis at the visualized segments. No aneurysm. RIGHT VERTEBRAL ARTERY: Unremarkable as visualized. No significant stenosis at the intradural/visualized segments. No aneurysm. LEFT INTERNAL CAROTID ARTERY: There are no acute findings of the right and left internal carotid artery. ALL ABOVE CRITERIA BY NASCET. No significant stenosis at the intracranial/visualized segments. No aneurysm. LEFT ANTERIOR CEREBRAL ARTERY: Unremarkable. No significant stenosis at the visualized segments. Anterior communicating artery is present. No aneurysm. LEFT MIDDLE CEREBRAL ARTERY: Unremarkable. No significant stenosis at the visualized segments. No aneurysm. LEFT POSTERIOR CEREBRAL ARTERY: Unremarkable. No significant stenosis at the visualized segments. No aneurysm. LEFT VERTEBRAL ARTERY: Unremarkable as visualized. No significant stenosis at the intradural/visualized segments. No aneurysm. BASILAR ARTERY: Unremarkable. No significant stenosis. No aneurysm. OTHER VASCULATURE: No vascular malformation. OTHER FINDINGS: There are no acute findings of the [place] without a demonstrated aneurysm or hemodynamically significant stenosis. ALL ABOVE CRITERIA BY NASCET. MRI/MRA Head ONLY without Contrast IMPRESSION: 1. There are no acute findings of the [place] without a demonstrated aneurysm or hemodynamically significant stenosis. ALL ABOVE CRITERIA BY NASCET. 2. There are no acute findings of the right and left internal carotid artery. ALL ABOVE CRITERIA BY NASCET. Electronically Signed: Ryan Tripp MD at 17:16 EDT ,
== END | disposition home or self-care (01) ==
LOC: MRI 15:31
PROVIDERS: PCP Family Medicine Geriatric Medicine; Visit Provider Psychiatry & Neurology Neurology
DX: G43.009 Migraine without aura, not intractable, without status migrainosus (principal); Z82.49 Family history of ischemic heart disease and other diseases of the circulatory system
CPT/HCPCS: 70544; 70553; A9575

== ENCOUNTER 2024-02-21 19:23 | Emergency (ER) | payer MEDICAID, SELFPAY ==
[2024-02-21] VITALS (10 sets, daily range): BP systolic 155–170; BP diastolic 90–110; PULSE 66–82; RESP 15–23; TEMP 36.6; O2SAT 80–100; BMI 29.5
--- NOTE | 2024-02-21 19:37 | RAD_ITS ---
EXAM: XR LEFT HUMERUS, 2 OR MORE VIEWS CLINICAL INDICATION: Injury/Pain TECHNIQUE: Frontal and lateral views of the left humerus. COMPARISON: Shoulder on same date. FINDINGS: BONES/JOINTS: Deformity of the humeral head suggestive of a Hill-Sachs fracture and possible fracture of the greater tuberosity with anterior dislocation of the humerus in relation to the glenoid. Possible inferior glenoid Bankart fracture. Mild acromioclavicular joint arthrosis. No sclerotic or destructive changes observed. SOFT TISSUES: No significant abnormality. No soft tissue swelling or gas. No radiopaque foreign body. RAD/Humerus min 2 Views IMPRESSION: No acute findings in the left humerus. Electronically Signed: Hi Castillo DO at 20:34 EDT ,
[2024-02-21] MEDS: Ondansetron 4 MG/2 ML Vial IV (19:51)
[2024-02-21] MEDS: HYDROmorphone 0.5 MG/0.5 ML SYRINGE IM (19:51)
--- NOTE | 2024-02-21 20:00 | RAD_ITS ---
EXAM: XR LEFT SHOULDER COMPLETE, 2 OR MORE VIEWS CLINICAL INDICATION: Injury/Pain TECHNIQUE: Two or more views of the left shoulder. COMPARISON: 02/21/2024 humerus radiographs. FINDINGS: BONES/JOINTS: Deformity of the humeral head suggestive of a Hill-Sachs fracture and possible fracture of the greater tuberosity with anterior dislocation of the humerus in relation to the glenoid. Possible inferior glenoid Bankart fracture. Mild acromioclavicular joint arthrosis. No sclerotic or destructive changes observed. SOFT TISSUES: No significant abnormality. No soft tissue swelling or gas. No radiopaque foreign body. RAD/Shoulder min 2 Views IMPRESSION: 1. Deformity of the humeral head suggestive of a Hill-Sachs fracture and possible fracture of the greater tuberosity with anterior dislocation of the humerus in relation to the glenoid. Possible inferior glenoid Bankart fracture. 2. Mild acromioclavicular joint arthrosis. Electronically Signed: Hi Castillo DO at 20:33 EDT ,
--- NOTE | 2024-02-21 20:45 | EX.ED.GENINJ ---
HPI History of Present Illness Chief Complaint: Dislocation Detail of Chief Complaint: Patient believes she dislocated her left shoulder. Informant: patient Onset/Context/Timing Onset: Hours Mechanism/Context: Blunt Injury and Fall (Off of the bed backwards she was putting up drywall when this happened. She presents with bruising and deformity of the left shoulder) Location of pain/injuries: Left shoulder Quality of Pain: Dull and Aching Location: Left shoulder Current Severity: Severe Maximum Severity: Severe Worsened by: Any movement Relieved by: Nothing Associated Symptoms Associated Symptoms: Positive for Loss of function; Negative for Parasthesias, Weakness, Loss of consciousness or Amnesia Narrative Narrative: Patient is a 53-year-old woman. She has history of hypertension and mitral valve prolapse. She was putting up drywall out of bed slipped fell backwards striking her left shoulder. She presents with deformity to the left shoulder. She denies paresthesia, anesthesia motors. She denies head trauma. She denies loss of conscious. She not amnestic. Denies neck pain. She denies chest pain or shortness of breath. She denies low back pain. She denies injury to the right upper extremity or the lower extremities. Prior similar symptoms: No Recent Illness/Hospitalization: No [facility] Medical History Insomnia Neuropathic pain Intussusception Antiphospholipid antibody positive Essential hypertension Depression Mitral valve prolapse Post-menopausal Anxiety Migraine headache Syncope Reactive hypoglycemia Fibromyalgia Home Medications ?Medication ?Instructions ?Recorded ?Last Taken ?Type multivitamin 1 tab PO DAILY 01/17/21 Unknown History gabapentin 600 mg tablet 300 mg PO TID 11/14/21 Unknown History montelukast 10 mg tablet 10 mg PO QHS 11/14/21 Unknown History fremanezumab-vfrm 225 mg/1.5 mL 225 mg (1.5 mL) subcut QMONTH #1.5 12/25/21 Unknown Rx subcutaneous auto-injector (Ajovy) mL naratriptan 2.5 mg tablet 2.5 mg PO DAILY PRN migraine 12/25/21 Unknown Rx headache #9 tabs ferrous sulfate 325 mg (65 mg 325 mg PO BID #60 tabs 02/18/22 Unknown Rx iron) tablet dextroamphetamine-amphetamine 15 1 tab PO TID 02/21/24 Unknown History mg tablet fluoxetine 20 mg capsule See Rx Instructions PO BID 02/21/24 Unknown History hydroxyzine HCl 25 mg tablet 25 mg PO TID PRN PRN anxiety 02/21/24 Unknown History lamotrigine 100 mg tablet 100 mg PO .COMPLEX 02/21/24 Unknown History loratadine-pseudoephedrine ER 10 1 tab PO DAILY 02/21/24 Unknown History mg-240 mg tablet,extended [id number] (Loratadine-D) magnesium oxide 400 mg (241.3 mg 400 mg PO DAILY 02/21/24 Unknown History magnesium) tablet omeprazole 40 mg capsule,delayed 40 mg PO DAILY 02/21/24 Unknown History release oxycodone-acetaminophen 5 mg-325 1 tab PO Q6H PRN PRN Pain 3 days 02/21/24 Unknown Rx mg tablet #12 TABLETS quetiapine 200 mg tablet 200 mg PO QHS 02/21/24 Unknown History trazodone 150 mg tablet 150 mg PO QHS 02/21/24 Unknown History Allergy/AdvReac Type Severity Reaction Status Date / Time No Known Allergies Allergy Verified 12/25/21 08:25 Family History Mother Breast cancer Diabetes Hypertension Father Diabetes Hypertension CVA (cerebral vascular accident) Brother Diabetes Surgical History History of surgery History of carpal tunnel release of both wrists History of D&C History of cholecystectomy History of tonsillectomy History of hysterectomy History of gastric bypass Social History Smoking Status: Never smoker second hand exposure: No details: socially substance use type: does not use caffeine: Yes Type: coffee Number of servings: 2 what type of physical activity do you participate in: none clotilde/caodaism: Judaism seatbelt use: always ROS ROS ED Constitutional Constitutional ED: Denies chills, fever(s) or subjective Eyes Eyes: Denies blurry vision or change in vision ENT ENT ED: Denies ear pain, rhinorrhea or sore throat Cardiovascular Cardiovascular: Denies chest pain or palpitations Respiratory/Chest Respiratory/Chest: Denies cough, dyspnea or dyspnea on exertion Gastrointestinal Gastrointestinal: Denies abdominal pain, constipation, diarrhea, nausea or vomiting Genitourinary Genitourinary ED: Denies dysuria, hematuria or urinary frequency Neurologic Neurologic: Denies headache(s) or paresthesias Psychiatric Psychiatric: Denies anxiety or depression Hematologic/Lymphatic Hematologic/Lymphatic: Denies easy bleeding or easy bruising EXAM Physical Exam Const Vital Signs: 02/21/24 19:26 02/21/24 20:26 02/21/24 21:00 Temperature 98 F Temperature Source Oral Pulse Rate 82 73 74 Respiratory Rate 16 17 18 Blood Pressure 165/110 H 165/110 H 168/100 H Blood Pressure Mean 128 128 122 Pulse Ox 98 100 98 Oxygen Delivery Method Room Air Room Air Room Air Oxygen Flow Rate (L/min) 02/21/24 21:15 Temperature 98 F Temperature Source Pulse Rate 72 Respiratory Rate 17 Blood Pressure 170/90 H Blood Pressure Mean Pulse Ox 100 Oxygen Delivery Method Nasal Cannula Oxygen Flow Rate (L/min) 2 Positive well nourished and well developed Constitutional Narrative: Patient is in obvious discomfort with deformity to the left shoulder. General Appearance ED: well developed; Negative for NAD HEENT Reports TM's clear atraumatic; Negative for tenderness Nose: Negative for septum abnormal Tympanic Membrane ED: Yes TM's clear Eyes PERRL and EOMs intact bilaterally Neck full ROM General: Negative for tenderness Chest Wall inspection of chest normal and palpation of chest normal Resp normal respiratory effort and clear to auscultation bilaterally Cardio regular rhythm, S1 normal heart sound, S2 normal heart sound and no murmurs Rate: regular rate GI normal to inspection, nondistended, normoactive bowel sounds, non-tender, non-distended and no masses Back/Spine normal to inspection and no thoracic nor lumbar tenderness Extremity Negative for normal to inspection or full ROM Extremity Narrative: Obvious deformity to left shoulder with bruising. There is pain outpatient over the proximal humerus and the humerus. She also has pain ovation over the distal humerus. Median, radial and ulnar function intact. Sensation over the arm is intact. Radial pulses 2+. Neuro oriented x3, CN's II-XII intact bilaterally, no focal motor deficits and no sensory deficits noted [place] Coma Scale: document GCS findings Spontaneous Obeys Commands Oriented 15 Sensorium / Orientation: alert Psych mental status grossly normal Skin No no wounds Skin Narrative: Bruise and abrasion left shoulder PROC Procedures Procedural Sedation 1 (Initial Baseline): Consent Signed: Yes Any Problems With Anesthesia: No You/Your family experience fever (hyperthermia) w/anesthesia: No Sedation medication: Propofol Dose: 200 Route: IV Total Moderate Sedation Units: 5 Maliampati Score: Class I ASA Classification: I Comment:: Anterior subcoracoid shoulder dislocation was successfully reduced by me with phlebotomy lab assistant of nurse to perform countertraction. Case discussed with Dr. Olivera. She is to call the office on Saturday. Other Procedures Procedure(s): Closed reduction anterior fracture dislocation left proximal humerus MDM MDM MDM Narrative Medical decision making narrative: Deformity to the shoulder and pain outpatient over the shaft and distal humerus will obtain x-ray of the shoulder and humerus to evaluate for fracture, dislocation, fracture dislocation versus contusion with large hematoma. Radiography Chest X-Ray - ED: Read by ED Physician (2 view x-ray of the shoulder reveals an anterior subcoracoid dislocation with a nondisplaced fracture of the proximal humerus at the surgical neck. The x-ray of the humerus, 2 views, reveals no other abnormality other than the proximal humeral fracture and dislocation.) Diagnostic Testing: Clinical Impression(s) from Imaging Studies Humerus X-Ray 02/21/24 19:37 IMPRESSION: No acute findings in the left humerus. Electronically Signed: Hi Castillo DO at 20:34 EDT , Shoulder X-Ray 02/21/24 20:00 IMPRESSION: 1. Deformity of the humeral head suggestive of a Hill-Sachs fracture and possible fracture of the greater tuberosity with anterior dislocation of the humerus in relation to the glenoid. Possible inferior glenoid Bankart fracture. 2. Mild acromioclavicular joint arthrosis. Electronically Signed: Hi Castillo DO at 20:33 EDT , Treatment and Re-Evaluation Narrative: Patient was informed the results. Will consent for procedural sedation using propofol and closed reduction. Patient was told since there is a fracture there is a possibility when I attempt to reduce the shoulder the fracture may become worse or displaced. She understands the risk benefits. Discharge Plan Triage Chief Complaint: Dislocation ED Provider: Jose Miguel Garcia Dx/Rx/DC Orders Clinical Impression: Closed fracture dislocation of left shoulder, Injury due to fall Instructions: ED Dislocation: Shoulder (Reduced), ED Fracture, Shoulder Prescriptions: New oxycodone-acetaminophen 5-325 mg tablet 1 tab PO Q6H PRN PRN (Reason: Pain) 3 Days Qty: 12 0RF No Action naratriptan 2.5 mg tablet 2.5 mg PO DAILY PRN (Reason: migraine headache) Qty: 9 4RF Ajovy Autoinjector 225 mg/1.5 mL auto-injector 225 mg SUBCUT QMONTH Qty: 1.5 6RF gabapentin 600 mg tablet 300 mg PO TID montelukast 10 mg tablet 10 mg PO QHS multivitamin Tablet 1 tab PO DAILY dextroamphetamine-amphetamine 15 mg tablet 1 tab PO TID fluoxetine 20 mg capsule See Rx Instructions PO BID Rx Instructions: orally twice a day; 2 IN THE MORNING AND ON CAPSULE AT NIGHT hydroxyzine HCl 25 mg tablet 25 mg PO TID PRN PRN (Reason: anxiety) lamotrigine 100 mg tablet 100 mg PO .COMPLEX Rx Instructions: 100 mg orally ONE TABLET IN THE MORNING AND HALF AT NIGHT; quetiapine 200 mg tablet 200 mg PO QHS omeprazole 40 mg capsule,delayed release(DR/EC) 40 mg PO DAILY loratadine-pseudoephedrine [Loratadine-D] 10-240 mg tablet extended release 24 hr 1 tab PO DAILY magnesium oxide 400 mg (241.3 mg magnesium) tablet 400 mg PO DAILY trazodone 150 mg tablet 150 mg PO QHS ferrous sulfate 325 mg (65 mg iron) tablet 325 mg PO BID Qty: 60 4RF Primary Care Provider: ODILIA VILLANUEVA Referrals: ODILIA VILLANUEVA [Other] Rubén Aguero MD [Med Staff - Active Staff] - 3-5 Days Activity Restrictions/Additional Instructions: Call Dr. Rubén Aguero's office Saturday for appointment for follow-up Apply ice to your left shoulder 6 times a day Take medication as needed for pain Print Language: [place] Disposition Disposition: Home, Self Care
[2024-02-21] MEDS: Propofol 200 MG/20 ML Vial IV BOLUS (21:20)
--- NOTE | 2024-02-21 21:20 | RAD_ITS ---
EXAM: XR LEFT SHOULDER COMPLETE, 2 OR MORE VIEWS CLINICAL INDICATION: Postreduction TECHNIQUE: Two or more views of the left shoulder. COMPARISON: Humerus on the same date. FINDINGS: BONES/JOINTS: Comminuted humeral head and neck fracture. Relocation of the humeral head in relation to the glenoid since prior examination. No sclerotic or destructive changes observed. SOFT TISSUES: No significant abnormality. No soft tissue swelling or gas. No radiopaque foreign body. RAD/Shoulder min 2 Views IMPRESSION: Comminuted humeral head and neck fracture. Relocation of the humeral head in relation to the glenoid since prior examination. Electronically Signed: Hi Castillo DO at 21:54 EDT ,
[2024-02-21] MEDS: Morphine 4 MG/ML Syringe IV (22:02)
== END 2024-02-21 22:36 | disposition home or self-care (01) ==
PROVIDERS: Emergency Provider Emergency Medicine; Visit Provider Emergency Medicine
DX: S42.292A Other displaced fracture of upper end of left humerus, initial encounter for closed fracture (principal); I10 Essential (primary) hypertension; W06.XXXA Fall from bed, initial encounter; Y93.89 Activity, other specified; G43.909 Migraine, unspecified, not intractable, without status migrainosus; Z79.899 Other long term (current) drug therapy; F41.9 Anxiety disorder, unspecified; F32.A Depression, unspecified; Z90.49 Acquired absence of other specified parts of digestive tract; Z90.710 Acquired absence of both cervix and uterus
CPT/HCPCS: 23665; 90715; 73030; 73060; 96372; 96374; 96375; 99152; 99285; J7030; A4216; J2405

== ENCOUNTER 2024-07-29 15:24 | Outpatient (RCR) | payer MEDICAID, SELFPAY ==
--- NOTE | 2024-07-30 10:00 | BH.NA ---
Physical Data Vital Signs Pulse Rate: 89 Blood Pressure: 141/85 Height/Weight Height: 1.6 m Weight:: 72.575 kg Weight in Pounds: 160.0 lbs Current Medication Compliance Medication Compliance Do you take your medication as prescribed?: Yes Nutritional History Appetite Nutritional Instructions: Describe your appetite:: Good Additional nutritional information:: Client states she has gained over 30lbs since February when she broke her shoulder. Client has a history of body dysmorphia and states frustration with her weight gain. Functional Assessment Sleep Pattern Describe any problems with sleeping: Client states she usually sleeps 5-7 hours per night. 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 If so, list type and date:: Yes (harrison, gastric bypass, D&C, tonsils, hyster, L shoulder, carpal tunnel) Substance Abuse Substance Abuse Please describe substance abuse in the last 30 days:: Client states she has occasionally had alcohol a few times a year but none recently. Client denies tobacco or substance use. Client states she usually drinks 1-2 cups of coffee and Mountain Dew Zero with caffeine. Mental Status Summary Mental Status Significant Findings/Observations on Appearance and Mood:: Client is alert and oriented x 4. Client is casually groomed. Client is cooperative with assessment. Client makes fair eye contact. Client's voice has normal rate and volume. Client has a somewhat restricted affect. Client makes logical associations and has normal processing. Client denies delusions/hallucinations. Client admits some passive thoughts of , but denies SI with intent or plan. Suicide Assessment Suicidal Ideation Are you currently or have you been suicidal in the past?: Yes Suicidal Intentional Rating Scale (SIRS): Suicidal thoughts (past) Physician Notification Past Psychiatric History MH Treatment Hx Age of first mental health symptoms: Client states she first took medication for anxiety/depression around age 18. Client is on Adderall for ADD. Describe (age, circumstance, etc) any past hospitalizations: None. Current providers for mental health treatment (counselor, psychiatrist, caseworker protective services, etc.): Dr. Lindsey at [facility] for psychiatry, Flores at [facility] for counseling Fall Risk Assessment Age Age: Less than 60 Mental Status Mental Status: Willing & able to ask for assistance when needed Physical Status Physical Status: No problems Impairments Impairments: None Elimination Elimination: Continent AND independent Gait or Balance Gait or Balance: Walks independently Hx of Falls History of falls in the past 6 months: No known history Medications/Substances Psychotropics:: Antidepressants, Antipsychotics and Stimulants Others:: Diuretics Medications/substances used within the past 24 hours or ordered to administer: 3 or more of the medications/substances listed above Total Score Total Points:: 2 RN Summary of Impressions Impressions Recommendations Impressions: Psychiatric Issues: 1. Major depressive disorder, recurrent, severe without psychosis 2. PTSD 3. Attention deficit disorder 4. Primary support issues Level of Care How do the client's current symptoms and functional deficits support need for this level of care?: Client was referred to IOP by her outpatient providers for worsening anxiety and depression. Client states for the past 6 months, she has felt very depressed and unable to enjoy life. Client reports isolating herself and has been having panic attacks. Client reports hopelessness and guilt. Client denies active SI, but does admit to passive thoughts of at times. Client states she feels like she has always strived to take care of other people and has not been putting effort in to taking care of herself and her mental health has suffered. Client reports one stressor is a shoulder fracture in February 2024 and subsequent weight gain and inability to work since then. IOP will promote gains and prevent further decompensation while providing social support and skills training.
[2024-07-30 10:53] VITALS: BP 141/85; PULSE 89
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
--- NOTE | 2024-07-30 12:50 | BH.DR.ITP ---
Initial Treatment Plan Patient Information Visit Information: ADMISSION DATE: EXPECTED LOS: 4-6 weeks Problems/Symptoms Problem #1:: Depression Symptom:: Sadness, hopelessness, worthlessness, guilt, lack of motivation, low energy, decreased concentration, passive thoughts of , biological disruption of sleep Problem #2:: Anxiety Symptom:: Worry, rumination, panic attacks, flashbacks, avoidance, reexperiencing and trauma triggers
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
--- NOTE | 2024-08-03 09:05 | BH.SGPN.GN ---
Behaviors/Verbalizations/Mental Status: [] Eye contact is good. Motor activity is appropriate. Appearance is casual. Speech is Appropriate. Mood is dysthymic. Affect is congruent. Thoughts are linear and logical. No evidence of psychosis. Reviewed daily check in sheet and pt reports 2/5 for suicidal thoughts and 0/5 for intent. Completed [facility] Suicide screening prior to group and was not high risk. This may be her baseline. Client Response/Progress/Benefit: [] Pt participated at times during the group discussions. Attentive. Daily symptom tracker notes 3/5 for anxiety and depression. This was pt?s first process group in [facility]. Briefly introduced herself to the group. Reports that she wants to ? decrease my anxiety and depression?. ? I want to also better understand myself?. No progress noted as this was first day in IOP. Group provided feedback, empathy, and advice for her first day/week in [facility] which was beneficial. Will continue in [facility] to maintain safety, prevent decompensation, and improve functioning. Narrative Note: []
--- NOTE | 2024-08-03 10:10 | BH.SGPN.GN ---
Behaviors/Verbalizations/Mental Status: []Patient was alert and oriented, casually dressed and groomed. Eye contact good. motor activity appropriate. speech within normal limits. Affect congruent, mood dysthymic. Thoughts linear, logical, no signs of hallucinations or delusion. Client Response/Progress/Benefit: [] Pt participated in the group discussions AEB providing input, nodding and taking notes. Attentive during psychoeducation Goal Setting. Participated during the discussion on common barriers. Pt stated personal barriers to accomplishing goals include negative people, self-defeating thoughts, and not knowing where to start. Group also identified benefits of goals as sense of purpose, improved self-confidence, more motivation for other goals, sense of accomplishment, and improved mental health. Pt identified personal benefits to goal setting. Benefited from increased awareness of mental health benefits of goals as well as psychoeducation on SMART goal criteria. Will continue in IOP to prevent decompensation, improve daily functioning, and reduce negative self-talk. Narrative Note: []
--- NOTE | 2024-08-03 11:10 | BH.SGPN.GN ---
Behaviors/Verbalizations/Mental Status: [] Pt alert and oriented. Appearance is casual. Eye contact good. Motor activity appropriate. Speech within normal limits. Affect is dysthymic. Mood is congruent. Thoughts linear, logical, no signs of hallucinations or delusions. Client Response/Progress/Benefit: [] Pt was engaged during discussion and experiential activity. Completed the worksheet challenging them to develop a personal SMART goal. Pt chose a SMART goal to identify and challenge negtive thoughts once per day for a week. Believes this goal will benefit them being through increasing self-resilience and realize I can get through this depression. Identified obstacles such negative people, not being good at challenging thoughts, and self-defeating thoughts. .Benefited from this group by developing a short-term SMART goal related to mental health. Will continue IOP to prevent decompensation, increase healthy coping, and improve functioning.
--- NOTE | 2024-08-04 10:10 | BH.SGPN.GN ---
Behaviors/Verbalizations/Mental Status: [] Eye contact is good. Motor activity is appropriate. Appearance is casual. Speech is Appropriate. Mood is depressed. Affect is congruent. Thoughts are linear and logical. No evidence of psychosis Client Response/Progress/Benefit: [] Pt responded well to session AEB contributing to small group discussion, taking notes, and listening attentively to others. Group defined anger and discussed the benefits of managed anger and anger as a secondary emotion. Group shared perspective on benefits of anger as advocating for self and getting needs met, a means to internal change, as well as a catalyst for change. Pt engaged in group discussion on common triggers for anger. Identified feeling disrespected or talked down to as an anger trigger. Appeared to benefit from increased knowledge of the anger cycle as well as personal triggers. Will continue IOP to increase healthy coping, prevent decompensation, and improve functioning. Narrative Note: []
--- NOTE | 2024-08-04 11:10 | BH.SGPN.GN ---
Behaviors/Verbalizations/Mental Status: []Client alert and oriented, casually dressed and groomed. Eye contact fair. Motor activity appropriate. Speech within normal limits. Affect congruent, mood dysthymic. Thoughts linear, logical, no signs of hallucinations or delusions. Client Response/Progress/Benefit: []Pt was engaged throughout AEB contributing to group discussion and activity. Group processed how they each responded to the intentionally difficult task they were asked to completed and described the physical and emotional anger cues experienced throughout, as well as strategies used for managing these frustrations. Pt contributed as group brainstormed healthy coping skills for better managing anger which included: music, walking/exercise, taking a break, healthy venting, avoiding unnecessary stressors, reflection, and journaling. Pt cooperative with working in small groups to identify what strategy wants to work on to help interrupt personal anger cycle.Pt to continue IOP to improve healthy coping skills, challenge distortions, and prevent decompensation.
--- NOTE | 2024-08-04 14:10 | BH.MDN_ITS ---
Multi-Disciplinary Note Note 30-min Individual: Time Started:: 09:30 Date: 08/04/24 Purpose of session/treatment goals addressed:: Used the session to identify treatment plan goals and obtain psychosocial hx. Eye Contact:: Good Motor Activity:: Appropriate and Restless Appearance:: Casual Speech:: Pressured and Tangential Mood:: Anxious, Irritable and Depressed Affect:: Congruent Thoughts:: Linear, Logical and No evidence of hallucinations/delusions noted Staff Interventions:: motivational interviewing, rapport building, strengths perspective and treatment planning Client Response:: Pt first week in IOP tx. Reports she is finding the pro gram to be surprisingly enjoyable, as she had feared not fitting in or being judged by other group members. Went on to indicate that the shared group environment has helped her to normalize her own mental health struggles and feel more comfortable with discussing them in the treatment environment. Went on to describe a recent conversation with her son led to pt reflecting on the various places she has lived and worked since age 18. Noted living 34 different places with countless different jobs. Expressed guilt and embarrassment in this regard, noting that she has always struggled with sitting still and often quits things when bored or feeling under appreciated. Noted that she would like to work on this as she plans to return to working at least part-time once her shoulder has healed, as pt recently underwent surgery. Described primary stressors impacted her mental health as guilt associated with her adult daughter with autism living in pt?s brother?s home due to ongoing housing issues, stress within her relationship with her mother, as well as stress within her current relationship. Notes struggling with hopelessness, low self-worth, negative self-talk, poor concentration, and low motivation. Pt would like to work on improving mood stability, healthy boundaries, and feeling more sense of connection within her interpersonal relationships. Risks/Concerns:: Daily symptom tracker notes no suicidal ideations, plan, or intent. Hx of SI with plan/intent, however no hx of suicide attempts. Progress Toward Goals/Plan:: No progress noted as this was her first week in IOP. Presents today with several concerns related to managing daily psychosocial stressors. Will continue to monitor daily symptom tracker and encourage improve self-talk. Will continue IOP level of care to maintain safety, prevent decompensation, and improve functioning. Time Stopped:: 10:02
--- NOTE | 2024-08-05 09:05 | BH.SGPN.GN ---
Behaviors/Verbalizations/Mental Status: [] Eye contact is good. Motor activity is appropriate. Appearance is casual. Speech is Appropriate. Mood is dysthymic. Affect is congurent. Thoughts are linear and logical. No evidence of psychosis. Reviewed daily check in sheet and pt reports passive thoughts of as 2/5 however denies intent. This is baseline. Client Response/Progress/Benefit: [] Pt was an active participant in group discussions. Attentive. Daily symptom tracker notes 2/5 for anxiety, depression, and irritability.. ? I can?t shut off my mind?. Shared with the group situational stressors which lead to excessive ruminations, negative thoughts, intense emotions, and unhealthy behaviors. She was able to begin to implement healthy skills to break cycles such as taking time for hobbies and baking. Limited progress noted. Benefited from group support, encouragement, and feedback. Will continue in IOP to maintain safety, stabilize mood, and increase healthy coping. Narrative Note: []
--- NOTE | 2024-08-05 10:15 | BH.SGPN.GN ---
Behaviors/Verbalizations/Mental Status: []Client alert and oriented, casually dressed and groomed. Eye contact good. Motor activity appropriate. Speech within normal limits. Affect flat, mood depressed. Thoughts linear, logical, no signs of hallucinations or delusions Client Response/Progress/Benefit: []pt responded well to session, contributing to discussion and engaged during the activity. Group identified the benefits of change which included: personal growth, increased confidence, improving mental health, progressing, and becoming resilient. Worked with the group to identify barriers to change and pt identified personal barriers as lack of resources, lack of support, and relationships. pt participated along with group in activity where they discussed the emotions related to change. Benefited from increased awareness and understanding of emotions, benefits, and barriers related to change. Will continue IOP tx to prevent decompensation, gain healthy coping skills, and improve daily functioning. Narrative Note: []
--- NOTE | 2024-08-05 11:15 | BH.SGPN.GN ---
Behaviors/Verbalizations/Mental Status: []Client alert and oriented, neatly dressed and groomed. Eye contact good. Motor activity appropriate. Speech within normal limits. Affect congruent, mood depressed and anxious. Thoughts linear, logical, no signs of hallucinations or delusions. Client Response/Progress/Benefit: [] Pt responded well to session, attentive throughout. Did well to actively listen and contributed when prompted as group worked to review change process. Pt worked with group to relate the strategies used to overcome barriers in the various stages of change and common emotions throughout. Pt identified a change they would like to make is ?Setting a boundary with my mother.? Pt identified currently being in the preperation stage for this change. Pt said reducing number of daily calls is one thing she can do to help pt get to the next stage. Appeared to benefit from identifying a change they want and how to progress. Pt will continue IOP tx to prevent decompensation, combat distorted thought patterns, and improve self-compassion. Narrative Note: []
== END 2024-08-07 23:59 ==
LOC: BHIOP 15:24
PROVIDERS: Referring Provider Psychiatry & Neurology Psychiatry; Visit Provider Psychiatry & Neurology Psychiatry
DX: F33.2 Major depressive disorder, recurrent severe without psychotic features (principal); F43.10 Post-traumatic stress disorder, unspecified; F98.8 Other specified behavioral and emotional disorders with onset usually occurring in childhood and adolescence
CPT/HCPCS: H2012; H2020; S9480; 90832

== ENCOUNTER 2024-08-10 07:38 | Outpatient (RCR) | payer MEDICAID, SELFPAY ==
[2024-08-08 01:34] VITALS: BP 141/85; PULSE 89
--- NOTE | 2024-08-10 09:00 | BH.SGPN.GN ---
Behaviors/Verbalizations/Mental Status: [] Eye contact is good. Motor activity is appropriate. Appearance is casual. Speech is Appropriate. Mood is depressed and anxious. Affect is congruent. Thoughts are linear and logical. No evidence of psychosis. Reviewed daily check in sheet and no reports of suicidal ideations or intent. Client Response/Progress/Benefit: [] Pt was an active participant in group discussions. Attentive. Daily symptom tracker notes 2/5 for depression and /5 for irritability. Despite some positive engagements and self-care overall the weekend such as seeing her nephew for the first time in 3 years she is ruminating on negative thoughts. Elaborated on long-standing conflict, poor communication, and unresolved trauma with her mother. Intrusive thoughts regarding her past and current conflicts specifically with her mother which she struggles to accept or challenge. Limited progress. Benefited from group support and encouragement , however is dismissive at times of feedback on healthy strategies. Will continue in IOP to prevent decompensation, stabilize mood, and increase healthy coping. Narrative Note: []
--- NOTE | 2024-08-10 10:10 | BH.SGPN.GN ---
Behaviors/Verbalizations/Mental Status: [] Eye contact is good. Motor activity is appropriate. Appearance is casual. Speech is Appropriate. Mood is dysthymic. Affect is congruent. Thoughts are linear and logical. No evidence of psychosis. Client Response/Progress/Benefit: [] Pt was an active participant in group discussions. Attentive during psychoeducation on the 4 communication styles (Passive, Passive-Aggressive, Aggressive, and Assertive) and the obstacles to effective communication. Contributed during interactive discussion on the benefits of communicating effectively. Worked well with peers to identify the benefits and disadvantages to the different communication styles. Pt believes that she is primarily passive and passive-aggressive and gave examples of recent events. Able to identify the impact this has on relationships/family. Benefited from increased understanding of communication styles and how these can impact effective communication. Will continue in IOP to improve emotion regulation, challenge distortions, and prevent decompensation.
--- NOTE | 2024-08-10 11:15 | BH.SGPN.GN ---
Behaviors/Verbalizations/Mental Status: []Pt alert and oriented, casually dressed and groomed. Eye contact good. Motor activity appropriate. Speech within normal limits. Affect congruent, mood depressed and anxious. Thoughts linear, logical, no signs of hallucinations or delusions. Client Response/Progress/Benefit: [] Pt responded well to session AEB Pt listening attentively to others and providing input during group discussion on the pay offs and costs of the different communication styles. Pt able to connect how current communication style impacts mental health. Connected with peers? comments about importance of using assertive communication. Pt seemed to benefit from increasing awareness of healthy strategies to improve communication and worked within small group to identify assertive communication approaches to example scenarios. Identified wanting to work on asking herself what her boundaries are when communicating with others. Will continue IOP tx to prevent decompensation, improve mood stability, and improve daily functioning. ? Narrative Note: []
--- NOTE | 2024-08-11 09:00 | BH.SGPN.GN ---
Behaviors/Verbalizations/Mental Status: [] Eye contact is good. Motor activity is appropriate. Appearance is casual. Speech is Appropriate. Mood is depressed. Affect is congruent. Thoughts are linear and logical. No evidence of psychosis. Reviewed daily check in sheet and no reports of suicidal ideations or intent. Client Response/Progress/Benefit: [] Pt was an active participant in group discussions. Attentive. Did well to identify 2 mental health wins, despite reporting increased depression. Wins included getting up early enough to shower prior to coming to group today. Reflected that this did help improve her mood marginally. Additional win noted as making time to get some of her laundry done as well yesterday. Stressor continues to be her daughter?s housing and [place] to hear back [facility] [employer] on this matter. Expressed negative self-talk and guilt surrounding the situation. Receptive of and appearing to benefit from group support and challenging pt to give herself credit for doing what?s in her control to help her daughter. Benefited from group support, encouragement, and feedback. Will continue in IOP to prevent decompensation, promote mood stability, and increase consistent use of healthy coping. Narrative Note: []
--- NOTE | 2024-08-11 14:42 | BH.MDN ---
Multi-Disciplinary Note Note 45-min Individual: Time Started:: 10:36 Date: 08/11/24 Purpose of session/treatment goals addressed:: Purpose of session was to process current stressors reinforcing pt sx of depression and resulting in increased rumination. Eye Contact:: Good Motor Activity:: Appropriate Appearance:: Casual Speech:: Pressured Mood:: Irritable and Depressed Affect:: Congruent Thoughts:: Linear, Logical, Racing and No evidence of hallucinations/delusions noted Staff Interventions:: thought challenging, motivational interviewing, psychoeducation on: (appropriate vs. inappropriate guilt), CBT techniques and strengths perspective Client Response:: Pt responded well to session, open to meeting with therapist. Pt reports she has been struggling with low motivation and feeling emotionally burnt out for the past two days. Initially reported not knowing why her sx are worse; however, upon further discussion pt identified several ongoing stressors impacting her mood and reinforcing depression and anxiety. Described guilt regarding her daughter?s current living situation as a primary stressor. Reports blaming herself for her daughter having to live with pt?s brother while on the [employer] [place] as pt is currently staying with her boyfriend. Additional stressor noted as lack of independence given that she does not currently have a vehicle of her own. Noted her boyfriend often drives her where she needs or wants to go, but she feels guilty about asking him to do so. Went on to note that she is experiencing additional guilt as pt has been avoiding visiting her mother as well. Reports that this relationship is toxic however she feels obligated to maintain it. Pt somewhat receptive of working with therapist to review appropriate vs. inappropriate guilt, as well as discuss the importance of consistent self-care in order to best manage current stressors without feeling overwhelmed or burnt out. Described constant racing thoughts and feeling she needs to always be doing something which results in overwhelm and not actually accomplishing anything. Noted that she feels her relationship with her boyfriend and daughter are suffering as a result of current stress levels. Did well to identify what is in her control to focus on addressing today. Pt identified plans to visit with her mother so that this is not something she is continuing to stress about, as pt is not willing to establish more firm boundaries with her mother at this time. Did identify ways to prevent the visit from resulting in conflict by being very intentional about the topics discussed, as well as letting her mother know ahead of time that she will not be able to stay long. Shared that she can practice deep breathing on the way over and during the visit as needed, as well as take time to do something calming like vicky art afterwards. Risks/Concerns:: Pt denies any suicidal ideations, plan, or intent. Pt denies any thoughts of . Progress Toward Goals/Plan:: Pt second week in IOP tx. Reports finding the shared environment to be comforting and supportive. Noted increased acceptance of her own mental health struggles as a result of hearing other's struggles and ability to make consistent progress. Finds information learned in group to be helpful and in implementing some mindfulness skills such as deep breathing and is using vicky art as a means of slowing her brain. However, does continue to struggle with significant rumination and racing thoughts related to external stressors. Reports feeling trapped by loss of transportation which she believes significantly impacts her mental health. Struggles with in the moment thought challenging and use of emotion reasoning within her relationships. Recommended continued IOP tx to improve mood stability and distress tolerance, improve functioning, as well as prevent decompensation. Time Stopped:: 11:25
--- NOTE | 2024-08-13 09:05 | BH.SGPN.GN ---
Behaviors/Verbalizations/Mental Status: [] Eye contact is good. Motor activity is appropriate. Appearance is casual. Speech is Appropriate. Mood is euthymic. Affect is full. Thoughts are linear and logical. No evidence of psychosis. Reviewed daily check in sheet and pt reports 2/5 for SI (passive) and 0/5 for intent. This is baseline and long-standing. Client Response/Progress/Benefit: [] Pt was an active participant in group discussion. Attentive. Daily symptom tracker notes 4/5 for depression and irritability. ? I?m all over the place?. Continues to ruminate extensively on her relationship with her mother, however struggles to set boundaries. Long standing challenging relationship. Dismissive of group feedback and vague regarding her expectations of the relationship. Another stressor is related to her daughter?s housing issues which she feels responsible. Situational and external stressors which she blames herself. Limited progress. Limited benefit aside from support. Will continue in IOP to prevent decompensation, provide support, and increase healthy coping Narrative Note: []
--- NOTE | 2024-08-13 10:10 | BH.SGPN.GN ---
Behaviors/Verbalizations/Mental Status: [] Pt alert and oriented, casually dressed and groomed. Eye contact good. Motor activity appropriate. Speech within normal limits. Mood is depressed and anxious. Affect is congruent. Thoughts linear, logical, no signs of hallucinations or delusions. Client Response/Progress/Benefit: [] Pt was an active?participant in group discussions and experiential activity. Worked with peers to identify benefits of healthy relationships which included; support, shared experiences, laughter, understanding, and the ability to challenge us. Group identified factors that lead to unhealthy relationships which included; fear, loneliness, low self-esteem, need to be liked, and societal expectations. Benefited from increased insight and awareness of benefits of healthy relationships and factors that contribute to unhealthy relationships. Will continue IOP to prevent decompensation, increase healthy coping skills, and improve functioning. Narrative Note: []
--- NOTE | 2024-08-13 11:05 | BH.SGPN.GN ---
Behaviors/Verbalizations/Mental Status: []Pt alert and oriented, casually dressed and groomed. Eye contact good. Motor activity appropriate. Speech within normal limits. Affect constricted, mood anxious. Thoughts linear, logical, no signs of hallucinations or delusions. Client Response/Progress/Benefit: [] Pt responded well to session, engaged and taking notes throughout. Worked with group to connect components of the experiential activity with characteristics of healthy and unhealthy relationships. Attentive during psychoeducation about characteristics of healthy, unhealthy, and abusive relationships. Pt reported pt is better with being respectful and communicating effectively. However, pt reported pt can work on letting go of needing control by ?being more mindful and letting others do things.? Appeared to benefit from identifying current healthy relationship attributes and an area Pt wants to work on to build healthier relationships. Pt to continue IOP tx to prevent decompensation, improve daily functioning, and increase distress tolerance. ? Narrative Note: []
--- NOTE | 2024-08-17 09:00 | BH.SGPN.GN ---
Behaviors/Verbalizations/Mental Status: [] Eye contact is good. Motor activity is appropriate. Appearance is casual. Speech is Appropriate. Mood is anxious. Affect is congruent. Thoughts are linear and logical. No evidence of psychosis. Reviewed daily check in sheet and pt reports 2/5 for passive thoughts of and 0/5 for intent. Client Response/Progress/Benefit: [] Pt was an active participant in group discussion. Attentive. Daily symptom tracker notes 4/5 for depression and irritability. Began check-in reporting self-care which was beneficial to her mental health, however quickly reframed it into feeling guilty for treating herself. Reports guilt and ? beating myself up? over getting my hair done. Believes she could have spent the money and time on something else. Group attempted to reframe and point of the significant mental health benefits of self-care however pt was dismissive. ? I can?t think that way?. Also continues to focus on external stressors which she has limited control. Unable to accept or change perspective. Limited progress as she is unwilling to make changes. Limited benefit from group. Will continue in IOP to prevent decompensation, provide support, and increase healthy coping. Narrative Note: []
--- NOTE | 2024-08-17 10:15 | BH.SGPN.GN ---
Behaviors/Verbalizations/Mental Status: []Client alert and oriented, casually dressed and groomed. Eye contact good. Motor activity appropriate. Speech within normal limits. Affect congruent, mood anxious. Thoughts linear, logical, no signs of hallucinations or delusions. Client Response/Progress/Benefit: [] Pt was an active participant AEB taking notes and engaging in group activity. Connected with the topic of pitfalls and listened to group discussion on barriers that prevent from choosing a healthier path to mental wellness. Group worked together to identify examples of personal pitfalls. These examples included; shutting down, not asking for help, negative thinking patterns, avoidance, and isolation. Pt benefited from group as Pt learned to better identify potential barriers to improving mental health symptoms. Pt will continue IOP tx to increase distress tolerance, improve daily functioning, and reduce negative thinking patterns. Narrative Note: []
--- NOTE | 2024-08-17 11:15 | BH.SGPN.GN ---
Behaviors/Verbalizations/Mental Status: []Client alert and oriented, casually dressed and groomed. Eye contact good. Motor activity appropriate. Speech within normal limits. Affect congruent, mood dysthymic and irritable. Thoughts linear, logical, no signs of hallucinations or delusions. Client Response/Progress/Benefit: [] Pt receptive of session, engaged throughout AEB Pt actively listening and contributing to discussion as well as taking notes.? Pt participated in the experiential activity and did well to communicate ideas with peers and manage emotions. Pt attentive as group processed how the emotions and perspective of the group impacted the activity. Group worked together to identify different coping skills to help manage pitfalls. Pt identified a pitfall they struggle with as negative thinking. Pt plans to work on their pitfall by taking small steps to begin recognizing small victories daily. Benefited from identifying personal pitfalls and strategies to overcome these pitfalls. Pt will continue IOP tx to prevent decompensation, improve daily functioning, and gain skills to improve mood stability. Narrative Note: []
--- NOTE | 2024-08-18 10:15 | BH.SGPN.GN ---
Behaviors/Verbalizations/Mental Status: []Client alert and oriented, casually dressed and groomed. Eye contact good. Motor activity appropriate. Speech within normal limits. Affect congruent, mood anxious and depressed. Thoughts linear, logical, no signs of hallucinations or delusions. Client Response/Progress/Benefit: [] Pt was an attentive and active participant, AEB taking notes and providing input in group discussion. Attentive during psychoeducation. Pt engaged during interactive discussion in which the group defined self-care and discussed its benefits. Group discussed barriers and benefits to self-care. Identified benefits as being more productive, feeling more grounded, feeling happier, decreased anxiety, better quality of life, and increased resilience. Pt participated in small groups where they worked to identify and challenged common self-care ?myths?. Benefited from increased awareness of self-care, its benefits, and the consequences of not utilizing self-care strategies. Will continue IOP tx to improve mood stability, promote use of healthy coping skills, and prevent decompensation.
--- NOTE | 2024-08-18 11:15 | BH.SGPN.GN ---
Behaviors/Verbalizations/Mental Status: []Client alert and oriented, neatly dressed and groomed. Eye contact good. Motor activity appropriate. Speech within normal limits. Affect congruent, mood distressed. Thoughts linear, logical, no signs of hallucinations or delusions. Client Response/Progress/Benefit: [] Pt taking notes during discussion reviewing different areas of self-care and completing self-assessment of current self-care, as well as providing input throughout discussion. Did well to complete self-care self-assessment worksheet. Pt identified how pt is doing in each category and what self-care activities pt wants to start using. Pt selected physical self-care to begin practicing more consistently. Pt plans to do this by ?getting back into exercising to clear my head.? Appeared to benefit from completing the self-care evaluation and gaining insights into current self-care practices, as well as identifying areas in which pt would like to improve upon. Pt will continue IOP tx to prevent decompensation, increase distress tolerance skills, and improve daily functioning. ? Narrative Note: []
--- NOTE | 2024-08-18 15:22 | BH.MDN ---
Multi-Disciplinary Note Note 45-min Individual: Time Started:: 10:47 Date: 08/18/24 Purpose of session/treatment goals addressed:: Purpose of session is to address current stressors maintaining pt sx of depression and anxiety. Reviewed healthy boundaries and boundary setting skills. Eye Contact:: Good Motor Activity:: Appropriate Appearance:: Casual Speech:: Appropriate Mood:: Irritable and Depressed Affect:: Congruent Thoughts:: Linear, Logical and No evidence of hallucinations/delusions noted Staff Interventions:: thought challenging, CBT techniques and strengths perspective Client Response:: Pt responded well to session, open to meeting with therapist. Pt reports she has continued to struggle with feelings of guilt and hopelessness surrounding her daughter?s living situation. Pt reports ongoing feelings of frustration that the [facility] program is not able to find her a place more quickly and believing she is a bad mother as a result. Reports a responsibility to ?fix this? for her as pt does not believe her brother?s home is a healthy living situation for her daughter. Noted that her boyfriend?s house has enough space for her to move in there; however, she does not want to overstep a boundary. Explained that not many people know of the relationship, and she feels at times that he is hiding her from others. Pt notes that she has discussed this with him; however, pt reports he is dismissive and tells her this is not true. Shared that she is trying to believe this but struggles with being negative and pessimistic by default. Reports that she constantly feels like she is ?drowning? as she is constantly managing stressors in her life. Reports that her relationship with her mother continues to be a major stressor as well. Pt able to recognize that she struggles with focusing on stressors outside of her control, such as other?s behaviors or attitude, which reinforcing feelings of helplessness and hopelessness. Receptive of discussion on healthy boundary setting and noted plans to try and set a boundary limiting her interaction with her mother, who is an ongoing trigger for her. Pt notes that she would also like to revisit the discussion with her regarding having her daughter stay with them more often. Risks/Concerns:: Daily symptom tracker notes no suicidal ideations, plan, or intent Progress Toward Goals/Plan:: Progress limited. Pt continues to report difficulties with focusing on anything other than her ongoing stressors regarding her daughter's housing and pt's relationship with her mother. Recognizes this reinforces feelings of hopelessness, guilt, and lack of control regarding these situations. Is working on identifying components of these stressors she does have control and focusing on how she responds to the ongoing stressors. Pt is working on improving her engagement in daily self-care, though continues to struggle with consistency in this area. Recognizes the impact lack of self-care has on feelings of exhaustion. Reports finding IOP tx to be supportive and beneficial thus far. Recommended continued IOP tx to improve mood stability and distress tolerance, challenge unhelpful thoughts, and prevent decompensation. Time Stopped:: 11:33
--- NOTE | 2024-08-19 11:39 | BH.TPR ---
Treatment Plan Review Demographics Date of Admission:: 07/29/24 Date of Treatment Plan Review:: 08/19/24 Admitting Diagnoses:: 1. Major depressive disorder, recurrent, severe without psychosis 2. PTSD 3. Attention deficit disorder 4. Primary support issues Current Diagnoses:: 1. Major depressive disorder, recurrent, severe without psychosis 2. PTSD 3. Attention deficit disorder 4. Primary support issues Patient Status Patient's Response to Treatment:: Pt has been consistent and engaged in IOP. She provided appropriate feedback to peers and contributes to group discussions. During group counseling she appears attentive AEB note-taking and completing worksheets. Pt self-reports overall improvement in mental health and functioning. This is at times inconsistent with how pt self-reports in the moment. Continued to struggle with significant negative thinking and externalism. Status of Current Problems and Symptoms: Pt completed the DSM-5 cross-cutting scales. Outcomes indicate an overall 14% reduction in symptom since her admission. Outcomes show mixed positive results. Scores did show improve in several domains including depression, anxiety, and irritability. Scores in the domains of sheng and personality function show no improvement or decompensation. She has denied any panic attacks or suicidal ideations since starting IOP. She continues to have psychosocial stressors (Relationship, daughter?s living situation) which have in the past been significant contributors to anxiety, depression, distress, and decompensation. She is focused on looking at what?s in her control and challenging inappropriate guilt and overall reports some reduction though minimal distress, however has taken action on relationship with mother through distancing herself from her and spending more time with other friends. Progress Problem #1: Problem Name:: Depression Status of Goals:: 1. Pt is gathering skills in groups on internal/external coping strategies for overwhelming emotions, physiological warning signs, affirmations, lists of supports, positive aspects of life, and motivations. Additionally, working on pt external locus of control and beginning to focus on where she can make healthy changes to responses/perspective. 2. Cognitive Distortion- this has been discussed in groups and individual. She can identify times when she utilizing these however more work needed. Pt default tends to be negative and assuming worst case scenario. Significant negative core beliefs impacting progress in this area as well Team Recommendations:: continue with course. Address increase in negative self-talk Problem #2: Problem Name:: anxiety Status of Goals:: 1. Identify anxiety triggers and developing coping skills- gathering skills in groups. Have addressed this during individual sessions specific to her daughter?s living situation. Working on grounding and mindfulness skills to improve anxiety during waiting periods. Team Recommendations:: Continue with course.
--- NOTE | 2024-08-20 09:05 | BH.SGPN.GN ---
Behaviors/Verbalizations/Mental Status: [] Pt alert and oriented, neatly dressed and groomed. Eye contact good. Motor activity appropriate. Speech within normal limits. Affect congruent, mood hopeful. Thoughts linear, logical, no signs of hallucinations or delusions. Reviewed pt?s symptom tracker, no risk for suicidal ideation, plan, or intent 08/20/24. Client Response/Progress/Benefit: []Pt was an active participant in group discussions. Attentive. Able to identify mental health wins including finding out her daughter is getting an apartment soon, spending time with her chickens, and working on her to-do list yesterday. Pt's stressor today is my relationship with my mom. Pt stated feeling exhausted but hopeful this morning. Pt receptive to feedback from peers which pt reported was helpful. Progress noted. Benefited from group support, encouragement, and feedback. Will continue in IOP to prevent decompensation, improve daily functioning, and reduce negative self-talk. Narrative Note: []
--- NOTE | 2024-08-20 11:15 | BH.SGPN.GN ---
Behaviors/Verbalizations/Mental Status: []Pt alert and oriented, casually dressed and groomed. Eye contact fair. Motor activity appropriate. Speech within normal limits. Affect congruent, mood depressed and anxious. Thoughts linear, logical, no signs of hallucinations or delusions. Client Response/Progress/Benefit: [] Pt responded well to session AEB taking notes and contributing to discussion throughout. Pt engaged as group continued discussion on acceptance and the mental health benefits of practicing acceptance. Pt and peers identified what makes acceptance challenging and pt completed a self-reflection exercise on what is hard to accept in pt's life. Pt identified something that is currently hard to accept the change in physical abilities since breaking her shoulder. Client stated by not accepting this it leads to feeling frustrated and disappointed. Group identified strategies to increase acceptance. Pt noted wanting to work on focusing on self-compassion and what is in her control. Pt appeared to benefit from gaining insight and learning strategies to increase acceptance. Pt will continue IOP tx to improve boundary setting, increase mood stability, and prevent decompensation. Narrative Note: []
--- NOTE | 2024-08-24 09:05 | BH.SGPN.GN ---
Behaviors/Verbalizations/Mental Status: [] Eye contact is good. Motor activity is appropriate. Appearance is casual. Speech is Appropriate. Mood is anxious and dysthymic. Affect is full. Thoughts are linear and logical. No evidence of psychosis. Reviewed daily check in sheet and no reports of suicidal ideations or intent. Client Response/Progress/Benefit: [] Pt was an active participant in group discussions. Attentive. According to pt she is rekindling her relationship with her sisters after several years of estrangement. Despite this significant event she reports ? my anxiety is really high?. Ruminating on family conflict with mother, trauma triggers, and past events. Limited progress noted. Benefited from group support and encouragement. Remains dismissive of feedback, encouragement to utilize strategies, and reframing attempts. Will continue in IOP to prevent decompensation, increase healthy coping, and improve overall functioning. Narrative Note: []
--- NOTE | 2024-08-24 11:05 | BH.SGPN.GN ---
Behaviors/Verbalizations/Mental Status: []Eye contact is good. Motor activity is appropriate. Appearance is casual. Speech is Appropriate. Mood is depressed and agitated. Affect is congruent. Thoughts are linear and logical. No evidence of psychosis. Client Response/Progress/Benefit: []Pt was an active participant in group discussion. Engaged and attentive during psychoeducation and interactive discussion on coping skills, why people use unhealthy coping skills, how to replace unhealthy coping skills, and internal vs external coping skills. Attentive as peers came up with list of unhealthy coping skills. Pt reported personally, they tend to either distract themselves by constant media stimulation or project onto others. Group discussed the effects of maladaptive coping skills on mental health. Benefited from increased understanding of unhealthy coping skills and the need for developing healthy internal and external coping skills. Actively participated during experiential group activity and was able to related this activity to group topic. Will continue in IOP to promote healthy thinking patterns, more consistently apply healthy coping skills, and promote mood stability. Narrative Note: []
--- NOTE | 2024-08-24 11:15 | BH.SGPN.GN ---
Behaviors/Verbalizations/Mental Status: []Pt alert and oriented, casually dressed and groomed. Eye contact good. Motor activity appropriate. Speech within normal limits. Affect congruent, mood depressed. Thoughts linear, logical, no signs of hallucinations or delusions. Client Response/Progress/Benefit: [] Pt responded well to session, taking notes and contributing when prompted. Group discussed the different categories of coping skills which included distraction, emotional release, grounding, self-love, and thought challenging. Pt participated in creating a coping skills ?menu? from the different categories of coping skills. Pt's coping skill menu included: cleaning and organizing, writing and journaling, and being kind to herself. Appeared to benefit from increasing their repertoire of healthy coping skills. Will continue IOP to prevent decompensation, improve daily functioning, and reduce negative thinking patterns. Narrative Note: []
--- NOTE | 2024-08-25 09:05 | BH.SGPN.GN ---
Behaviors/Verbalizations/Mental Status: []Pt alert and oriented, neatly dressed and groomed. Eye contact good. Motor activity appropriate. Speech within normal limits. Affect constricted, mood anxious and depressed. Thoughts linear, logical, no signs of hallucinations or delusions. Client Response/Progress/Benefit: []Pt was an active participant in group discussions. Attentive. Able to identify mental health wins including spending time in nature and continuing to maintain boundaries with her mom. Pt's stressor today is her daughter still has not found an apartment. Pt is feeling anxious and depressed? this morning. Pt receptive to feedback from peers which pt reported was helpful. Progress noted. Benefited from group support, encouragement, and feedback. Will continue in IOP to prevent decompensation, improve daily functioning, and reduce negative self-talk. Narrative Note: []
--- NOTE | 2024-08-25 10:10 | BH.SGPN.GN ---
Behaviors/Verbalizations/Mental Status: [] Eye contact is good. Motor activity is appropriate. Appearance is casual. Speech is Appropriate. Mood is euthymic. Affect is congruent. Thoughts are linear and logical. No evidence of psychosis. Client Response/Progress/Benefit: [] Client was an active participant during interactive group discussions. Attentive during psychoeducation on the six types of boundaries (physical, emotional, intellectual, sexual, time, and material) AEB note-taking and providing input. Along with peers contributed to interactive discussion on defining what a boundary is in mental health. Client along with peers identified challenges to setting boundaries which included; fear of other's response, guilt, fear of rejection, being a people pleaser, not knowing that a boundary needs to be set, etc. Client along with peers identified the benefits to setting boundaries such as better relationships, increased time for self-care, and increased confidence, and feeling more heard. Group discussed the mental health benefits to establishing boundaries at work, school, and home. Group members filled out self assessment of their boundary setting. Client shared with group how they were surprised how little they set boundaries from self assessment. Client benefited from increased awareness and insight on the importance/benefit to setting health boundaries. Will continue in IOP to prevent decompensation, stabilize anxiety, and improve functioning. Narrative Note: []
--- NOTE | 2024-08-25 11:15 | BH.SGPN.GN ---
Behaviors/Verbalizations/Mental Status: [] Eye contact is good. Motor activity is appropriate. Appearance is casual. Speech is Appropriate. Mood is euthymic. Affect is congruent. Thoughts are linear and logical. No evidence of psychosis. Client Response/Progress/Benefit: [] Client responded well to session AEB listening attentively to peers, providing some input, as well as taking notes throughout. Client contributed throughout psychoeducation on different boundary setting styles. Reports connecting with all three types of boundary setting, but indicated that when in newer environments will lean more towards rigid. Participated in small group discussion brainstorming various strategies for improving healthy boundary setting. Client reports wanting to begin using skill of using I statements. Seemed to benefit from increased awareness of how different boundary styles can impact mental health. Will continue IOP tx to increase consistent application of skills, increase self-care and anxiety management, and prevent decompensation. Narrative Note: []
--- NOTE | 2024-08-31 09:49 | BH.MDN ---
Multi-Disciplinary Note Note 45-min Individual: Time Started:: 09:17 Date: 08/31/24 Purpose of session/treatment goals addressed:: Purpose of session is to process current stressors, as well as address barriers to consistent self-care activities. Eye Contact:: Good Motor Activity:: Appropriate Appearance:: Casual Speech:: Appropriate Mood:: Dysthymic Affect:: Congruent Thoughts:: Linear, Logical and No evidence of hallucinations/delusions noted Staff Interventions:: thought challenging, CBT techniques, mindfulness skills and goal setting Client Response:: Pt responded well to session, openly discussing current sx and stressors. Described feeling ?all over the place? and attributes this to ongoing difficulties in managing the stress of her daughter?s current living situation. Noted following through with talking to her boyfriend about letting her stay with them; however, he remains unwilling to another person to the household. Went on to discuss difficulties with focusing on what is in her control, especially when her daughter shares her own concerns regarding her living situation. Went on to describe an uncomfortable exchange with her [id number] over the weekend regarding the situation. Did indicate temptation to lash out and say something out of anger, but instead ?bit my tongue and walked away?. Noted not wanting to make the situation worse for her daughter until alternative housing is secured. Pt shared that this was difficult for her and she had brief thoughts of wanting a drink to calm down afterwards, however did not act on this and attempted to using grounding skills such as deep breathing instead. Went on to describe successfully following through on establishing a boundary with her mother. Reports less guilt than she thought she would have after doing so and has found some relief in addressing one of her ongoing stressors. Ongoing difficulties in consistent self-care, reporting that she often waits to engage in her hobbies until the end of the day and then feels too tired to do so. Did note trying to do her crafting while sitting in bed and connected with discussion on how her brain may associate being in bed with sleeping, making it more difficult to complete other tasks while in the bed. Pt receptive of adding 20 minutes of crafting to her nighttime routine prior to getting ready for bed. Reports beliefs that consistent scheduled self-care time would be helpful in ensuring she follows through. Risks/Concerns:: Daily symptom tracker notes no suicidal ideations, plan, or intent Progress Toward Goals/Plan:: Progress noted. Although pt continues to report ongoing interpersonal conflict and housing stressors, she does indicate improved ability to manage her emotions surrounding these. Increased use of mindfulness and did follow-through with establishing healthier boundaries. Pt noted that she has seen some improvements in her mood, though continues to struggle with thoughts of when is the other shoe going to drop impeding her ability to be consistently present and engaged in her daily life. Recommended continued IOP tx to increase use of gratitude, reduce depressive sx, and promote continued skill application. Time Stopped:: 10:02
--- NOTE | 2024-08-31 10:20 | BH.SGPN.GN ---
Behaviors/Verbalizations/Mental Status: []Pt alert and oriented, neatly dressed and groomed. Eye contact good. Motor activity appropriate. Speech within normal limits. Affect congruent, mood depressed. Thoughts linear, logical, no signs of hallucinations or delusions. Client Response/Progress/Benefit: [] Pt was attentive during psychoeducation and participated in group activity. Group discussed what contributes to a person?s perspective and how perspective can positively or negatively impact mental health treatment. Pt reflected on their perspective today and how it is impacting them. Pt shared their perspective is ?I?m a negative chapo? as identifies with being an all or nothing thinker who tends to look at the negatives. Pt stated she is trying to focus on the ?small victories.? Pt appeared to benefit from increasing awareness of different perspectives and how they can affect mental health. Pt will continue IOP tx to prevent decompensation, improve daily functioning, and reduce negative self-talk. ?? Narrative Note: []
--- NOTE | 2024-08-31 11:20 | BH.SGPN.GN ---
Behaviors/Verbalizations/Mental Status: []Pt alert and oriented, casually dressed and groomed. Eye contact good. Motor activity appropriate. Speech within normal limits. Affect congruent, mood dysfunctional. Thoughts linear, logical, no signs of hallucinations or delusions. Client Response/Progress/Benefit: []Pt was attentive and contributed to group discussion. Pt worked with group to identify strategies that can help with challenging negative perspective. Pt stated they can practice using dialectical thinking to challenge negative perspective. Pt completed strengths exploration worksheet, identifying personal strengths. Pt able to acknowledge how these strengths are helping pt and can continue to help pt in mental health journey. Pt identified wanting to work on leaning on strength of creativity and love of learning for healthier emotional expression. Benefited from identifying personal strengths and strategies for enhancing use of identified strengths. Pt will continue IOP tx to continue improve functioning, mood stability, and prevent decompensation. Narrative Note: []
--- NOTE | 2024-09-01 09:00 | BH.SGPN.GN ---
Behaviors/Verbalizations/Mental Status: [] Client alert and oriented, casual appearance. Eye contact good. Motor activity appropriate. Speech within normal limits. Affect congruent, mood dysthymic. Thoughts linear, logical, no signs of hallucinations or delusions. Reviewed client's symptom tracker, no risk for suicidal ideation, plan, or intent. Client Response/Progress/Benefit: [] Client responded well to session AEB listening to others and sharing thoughts/feelings. Client reported mental positive as doing vicky art with her sister which she noted was very positive because she is trying to rebuild her relationship. Client noted additional mental positive as being able to fall asleep before midnight which helps her feel more rested. Client noted current stressor as feeling like she accomplish nothing at her house because she went to her sisters instead to spend time with therapy. Client receptive to thought challenge and realizes she actually did get stuff done but was struggling with noting those small positives. Appeared to benefit from support from peers. Will continue IOP tx to improve distress tolerance, challenge distortions, and prevent decompensation. Narrative Note: []
--- NOTE | 2024-09-01 10:10 | BH.SGPN.GN ---
Behaviors/Verbalizations/Mental Status: [] Eye contact is good. Motor activity is appropriate. Appearance is casual. Speech is Appropriate. Mood is anxious and depressed. Affect is congruent. Thoughts are linear and logical. No evidence of psychosis. Client Response/Progress/Benefit: [] Pt was an active participant during group discussions and group activities. This portion of group was very psychoeducation heavy and pt was attentive during psychoeducation. Engaged during activity in which they identified which type of foods (i.e. carbs, sugar, salt, fast food, caffeine, etc) they seek out when sad, tired, angry, stressed, anxious, etc. Pt was able to identify the impact that certain foods have on their mental health through group example which was beneficial. Benefited from increased awareness of the connection between nutrition and mental health. Will continue in IOP to prevent decompensation, decrease anxiety, improve healthy coping, and improve functioning. Narrative Note: []
--- NOTE | 2024-09-01 11:15 | BH.SGPN.GN ---
Behaviors/Verbalizations/Mental Status: []Pt alert and oriented, neatly dressed and groomed. Eye contact good. Motor activity appropriate. Speech within normal limits. Affect congruent, mood dysthymic. Thoughts linear, logical, no signs of hallucinations or delusions. Client Response/Progress/Benefit: [] Pt was an active participant during group discussions and group activities. This portion of group was very psychoeducation heavy and pt was attentive during psychoeducation. Engaged during activity in which they identified their own maintenance cycles with food and how it impacts their mental health symptoms. Pt and peers identified barriers to breaking these cycles as well as ways to combat barriers. Pt stated one barrier pt has is she is ?very black and white? with her thinking, so pt has a hard time finding balance. Pt was encouraged by therapist and peers to practice challenging her thought patterns to help pt with her eating maintenance cycles. Benefited from increased awareness of the connection between nutrition and mental health and from identifying strategies. Will continue in IOP to promote mood stability, increase dialectical thinking skills, and improve daily functioning. ? Narrative Note: []
--- NOTE | 2024-09-02 09:00 | BH.SGPN.GN ---
Behaviors/Verbalizations/Mental Status: [] Eye contact is good. Motor activity is appropriate. Appearance is casual. Speech is Appropriate. Mood is depressed. Affect is congruent. Thoughts are linear and logical. No evidence of psychosis. Reviewed daily check in sheet and no reports of suicidal ideations or intent. Client Response/Progress/Benefit: [] Pt was an active participant in group discussions. Attentive. Did well to identify 2 mental health wins. Wins included making a point to go to the eye doctor as she has not been in several years Reflected that this did help improve her sense of accomplishment. Additional win noted as using opposite action to clean the kitchen which she has been putting off. Stressor noted as completing housing paperwork for her daughter. Benefited from group support, encouragement, and feedback. Will continue in IOP to prevent decompensation, promote mood stability, and increase consistent use of healthy coping. Narrative Note: []
--- NOTE | 2024-09-02 10:10 | BH.SGPN.GN ---
Behaviors/Verbalizations/Mental Status: []Pt alert and oriented, neatly dressed and groomed. Eye contact good. Motor activity appropriate. Speech within normal limits. Affect congruent, mood depressed. Thoughts linear, logical, no signs of hallucinations or delusions. Client Response/Progress/Benefit: [] Pt participated during small group discussions. Attentive during psychoeducation about defense mechanisms. Showed engagement during small group discussions and helped group identify which defense mechanisms were maladaptive, adaptive, or ?somewhere in the [place].? Pt worked with small group on identifying how each defense mechanism can impact mental health and gave examples. Pt stated she gained awareness that a lot of defense mechanisms are [place]..?Seemed to benefit from gaining awareness about the different defense mechanisms. Pt to continue IOP tx to prevent decompensation, increase ability to use dialectical thinking, and improve daily functioning. Narrative Note: []
--- NOTE | 2024-09-02 11:10 | BH.SGPN.GN ---
Behaviors/Verbalizations/Mental Status: []Pt alert and oriented, neatly dressed and groomed. Eye contact good. Motor activity appropriate. Speech within normal limits. Affect congruent, mood depressed. Thoughts linear, logical, no signs of hallucinations or delusions. Client Response/Progress/Benefit: [] Pt responded well to session, participating in activity and small group discussion. Group reviewed the rest of the defense mechanisms and discussed how these are adaptive, maladaptive, or somewhere in the [place]. Pt's defense mechanisms included humor, self-discipline, and suppression. Pt stated humor for her is mostly maladaptive because she often makes self-deprecating jokes. Pt listened to crew lead teach different skills to help pt?s cope with or change their defense mechanisms. Pt appeared to benefit from gaining insight to the different defense mechanisms and learning coping skills. Pt will continue IOP tx to prevent decompensation, promote dialectical thinking, and improve self-compassion. Narrative Note: []
--- NOTE | 2024-09-02 12:36 | PCM.BH.PN ---
Progress Note Progress Note: History of Present Illness/Interim History: The patient is a 53-year-old female with a history of anxiety and depression and PTSD who is seen in follow-up at the [facility] behavioral health [facility]. I last saw the patient about 1 month ago and no medication changes were made. The patient according to staff is not strongly engaged in making changes. The patient states she is doing about the same as when I saw her last time but is currently stressed by trying to get her 22-year-old autistic daughter in apartment. She feels somewhat exhausted by this and is still down and depressed. She sleeps 6 to 7 hours a night but states that she does not sleep well and does not feel rested in the morning. She feels the sleep medications are not working as well as they used to. She states that at times she feels like the IOP makes her feel worse about herself because it brings up negative feelings. She admits to being down but denies passive thoughts of and suicidal ideation because she states that her daughter is protective and she would never do anything to herself because she loves her daughter. She denies also homicidal ideation, hallucinations and delusions. Current Psychiatric Medications: [] Prozac 40 mg p.o. twice daily, Lamictal 200 mg p.o. daily, Seroquel 200 mg p.o. daily, trazodone 150 mg p.o. nightly, gabapentin 300 mg p.o. 3 times daily, Klonopin 0.5 mg p.o. as needed, Adderall patch 8 mg daily Mental Status Examination: [] The patient is a 53-year-old female who appears normal for stated age and is casually dressed and groomed with good hygiene. She is cooperative during the interview and has no psychomotor agitation or retardation. Eye contact is good and speech is normal rate and rhythm and fluent with no pressure. Mood is anxious and depressed. Affect is constricted. Thought process is goal-directed and goal oriented. Thought content: There is no evidence of passive thoughts of , suicidal ideation, plan for suicide, homicidal ideation, hallucinations or delusions. Reality testing is intact. Intelligence is average. Judgment is intact. Insight is poor. Impulsivity moderate. Diagnoses: [] 1. Major depressive disorder, recurrent, severe without psychosis 2. PTSD 3. Attention deficit disorder 4. Primary support issues Plan: [] The patient will continue the IOP at [facility] as the structure, support, education and group therapy will hopefully prevent worsening of the patient's symptoms. No medication changes were made today except for increasing trazodone to 200 mg p.o. at bedtime to help with sleep. The patient does not wish to increase Seroquel to as she does not want any more weight gain. Patient states that her outpatient psychiatrist is planning to refer her for Spravato or ketamine infusion if she does not improve after the IOP. Patient will continue to follow-up with her medical and outpatient providers and I will see the patient in follow-up while she is in the IOP.
--- NOTE | 2024-09-07 10:10 | BH.SGPN.GN ---
Behaviors/Verbalizations/Mental Status: [] Client alert and oriented, casual appearance. Eye contact fair. Motor activity appropriate. Speech within normal limits. Affect congruent, mood dysthmic and anxious. Thoughts linear, logical, no signs of hallucinations or delusions. Client Response/Progress/Benefit: []Client engaged participant during group session as evidenced by contributions during group discussions, appearing to listen to others, and taking notes. Client engaged in discussion about barriers that keep people from having difficult confrontations. Group identified potential consequences to avoiding difficult conversations are resentment, increased anxiety, needs not met, increased conflict, and negative thoughts. Client appeared attentive during psychoeducation about techniques and skills to help have crucial conversations. Client seemed to benefit from increased awareness and education about importance of having difficult conversations and recognizing the impact of avoiding such conversations. Client to continue IOP to improve emotion regulation, challenge negative thoughts, and prevent decompensation.
--- NOTE | 2024-09-07 11:15 | BH.SGPN.GN ---
Behaviors/Verbalizations/Mental Status: []Pt alert and oriented, neatly dressed and groomed. Eye contact good. Motor activity appropriate. Speech within normal limits. Affect congruent, mood dysthymic. Thoughts linear, logical, no signs of hallucinations or delusions. Client Response/Progress/Benefit: [] Pt was an active participant, engaged in activities and discussion. Pt able to identify ways they negatively contribute to crucial conversations and pt was engaged during psychoeducation of the different ways to build interpersonal effectiveness skills. Pt and peers practiced mirroring and active listening in partners. Group reviewed DE[employer] MAN and used the handout to help map out how they would like a crucial conversation in their life to go. Pt identified a conversation she needs to have which is reinforcing a boundary with her mother who pt has a turbulent relationship with. Pt practiced I-statements and identified ways she could be mindful during the conversation. Pt appeared to benefit from learning and practicing interpersonal effectiveness skills. Pt will continue IOP tx to prevent decompensation, reduce negative self-talk, and improve daily functioning. Narrative Note: []
--- NOTE | 2024-09-07 14:44 | BH.MDN_ITS ---
Multi-Disciplinary Note Note 60-min Individual: Time Started:: 09:06 Date: 09/07/24 Purpose of session/treatment goals addressed:: Purpose of session was to discuss current stressors impacting mood and review strategies for using gratitude to perspective challenge. Began discussion on discharge planning. Eye Contact:: Good Motor Activity:: Appropriate Appearance:: Neat and Casual Speech:: Appropriate Mood:: Anxious and Dysthymic Affect:: Congruent Thoughts:: Linear, Logical and No evidence of hallucinations/delusions noted Staff Interventions:: thought challenging, CBT techniques, strengths perspective and taught coping skills (gratitude practice) Client Response:: Pt receptive of session, actively engaged throughout. Reports ongoing stress associated with her daughter?s current living situation. Did well to challenge negative thoughts by reminding herself she is doing everything within her power to facilitate change and that her daughter has an appointment with a behavioral health case manager to discuss housing as well. Went on to describe concerns for her nephew who is disabled and the medical staff physician of the home. Reports fear that he is being financially taken advantage of by her brother. Shared that she has been trying to be a support for him as well as give him guidance on improving his sense of independence. Plans to address these concerns more formally but is waiting until her daughter moves out so as to prevent her daughter from receiving backlash if pt?s brother is upset by the discussion. Went on to note belief that these two stressors are the primary source of continued feelings of numbness and depression. Reports some increase in recent guilt about maintaining boundary of limited contact with her mother. Did well to work with therapist to challenge use of inappropriate guilt. Pt able to identify areas of progress and current positives in her life including spending time with her niece and building a chicken coop over the weekend. Insight that she struggles with focusing only on the bad and was receptive of discussion explori ng why this may be; as well as psychoeducation on gratitude and benefits of daily gratitude practices. Reports that she has been wanting to get into a regular practice focusing on her mental health and is interested in beginning a daily gratitude journal. Reports plans to purchase a pre-made gratitude journal she saw while chopping yesterday as she feels she would benefit from the structure and guidance of prompts. Risks/Concerns:: None noted. Pt reports ongoing thoughts of not wanting to be in existence but denies these are suicidal in nature. Denies plan or intent. Protective factors and future orientation. Progress Toward Goals/Plan:: Progress noted AEB pt increased insight into how her thoughts and perspective directly contribute to maintaining depressive sx. Pt additionally reports that although she continues to struggle with concentration, she is doing better to complete tasks around the house and engage in activities she enjoys such as tending to the chickens and crafting. Pt noted some reduction in stress and increased hope associated with external issues. Interpersonal relationships improving with her sister, nephew, and boyfriend. Recommended continued IOP tx to improve self-talk, continue to promote mood stability, and prevent decompensation. Time Stopped:: 10:02
== END 2024-09-07 23:59 ==
LOC: BHIOP 07:38
PROVIDERS: Referring Provider Psychiatry & Neurology Psychiatry; Visit Provider Psychiatry & Neurology Psychiatry
DX: F33.2 Major depressive disorder, recurrent severe without psychotic features (principal); F43.10 Post-traumatic stress disorder, unspecified; F98.8 Other specified behavioral and emotional disorders with onset usually occurring in childhood and adolescence
CPT/HCPCS: H2012; H2020; S9480; 90834; 90837

== ENCOUNTER 2024-09-08 07:08 | Outpatient (RCR) | payer MEDICAID, SELFPAY ==
[2024-09-08 00:49] VITALS: BP 141/85; PULSE 89
== END 2024-09-23 12:10 | disposition home or self-care (01) ==
LOC: BHIOP 07:08
PROVIDERS: Referring Provider Psychiatry & Neurology Psychiatry; Visit Provider Psychiatry & Neurology Psychiatry
DX: F33.2 Major depressive disorder, recurrent severe without psychotic features (principal); F43.10 Post-traumatic stress disorder, unspecified; F90.9 Attention-deficit hyperactivity disorder, unspecified type
CPT/HCPCS: H2012; H2020; S9480; 90832; 90834

== ENCOUNTER 2024-12-14 15:38 | Emergency (ER) | payer MEDICAID, SELFPAY ==
[2024-12-14 15:40] VITALS: BP 130/91; PULSE 66; RESP 20; TEMP 36.1; O2SAT 100; BMI 31.6
--- NOTE | 2024-12-14 15:42 | RAD_ITS ---
PROCEDURE: WRIST MIN 3 VIEWS 12/14/2024 REASON FOR EXAM: Injuries status post trauma. Right wrist pain. Initial encounter. TECHNIQUE: WRIST MIN 3 VIEWS COMPARISON: None. FINDINGS: Bones: Fracture of the distal radius extending from the radiocarpal joint to the metaphysis of the radius distal right ulnar fracture involving the metaphysis. Dorsal angulation of the distal radial fracture fragment, a Colles fracture Soft tissue swelling. Other: RAD/Wrist min 3 Views IMPRESSION: Colles fracture of distal radius with a distal ulnar metaphyseal fractures well Reading Location: [facility]
--- NOTE | 2024-12-14 16:28 | RAD_ITS ---
PROCEDURE: CHEST PA AND LATERAL 12/14/2024 REASON FOR EXAM: FALL TECHNIQUE: CHEST PA AND LATERAL COMPARISON: 06/27/2021 FINDINGS: Lungs/Pleura: Clear. No pneumothorax or pleural effusion. Heart/Mediastinum: Within normal limits. Bones/Soft tissues: No acute abnormality. Multiple upper abdominal surgical clips. RAD/Chest PA and Lateral IMPRESSION: No acute cardiopulmonary disease. Reading Location: [id number]
--- NOTE | 2024-12-14 16:31 | EDS_ITS ---
HPI History of Present Illness HPI Narrative: 54-year-old female [id number] prior carpal tunnel release of both wrists in the past. She missed the last step on a ladder fell about 2 feet injuring her right wrist and landing on her chest also. No LOC. No neck or back pain. Chief Complaint: Upper Extremity Injury Informant: patient Occured/Mechanism Mechanism/Context: Yes injury and Yes blunt trauma Onset/Context/Timing Onset: Today Context: Sudden Onset Timing: Continuous Quality of Pain: Sharp Current Severity: Severe Maximum Severity: Severe Associated Symptoms Associated Symptoms: Negative for Parasthesia or Weakness Narrative Narrative: 54-year-old female fell missed the last step from a ladder and fell about 2 feet primarily injuring her right wrist but also said she struck her chest. No LOC. No neck pain. She is on no blood thinners. Denies any back or abdominal pain. Prior similar symptoms: No Recent Illness/Hospitalization: No PFSH PFSH Medical History Attention deficit disorder PTSD (post-traumatic stress disorder) Major depressive disorder, recurrent severe without psychotic features Insomnia Neuropathic pain Intussusception Antiphospholipid antibody positive Essential hypertension Mitral valve prolapse Post-menopausal Anxiety Migraine headache Syncope Reactive hypoglycemia Fibromyalgia Home Medications ?Medication ?Instructions ?Recorded ?Last Taken ?Type multivitamin 1 tab PO DAILY 01/17/21 Unkn own History montelukast 10 mg tablet 10 mg PO QHS 11/14/21 Unknow n History fluoxetine 20 mg capsule 40 mg PO BID 02/21/24 Unknow n History hydroxyzine HCl 25 mg tablet 25 mg PO TID PRN PRN anxi ety 02/21/24 Unknown History lamotrigine 100 mg tablet 200 mg PO QHS 02/21/24 Unkno wn History loratadine-pseudoephedrine ER 10 1 tab PO DAILY Unknown History mg-240 mg tablet,extended [id number] (Loratadine-D) magnesium oxide 400 mg (241.3 mg 400 mg PO DAILY 02/20 Unknown History magnesium) tablet omeprazole 40 mg capsule,delayed 40 mg PO DAILY Unknown History release quetiapine 200 mg tablet 200 mg PO QHS 02/21/24 Unkno wn History calcium 600 mg (as 1 tab PO DAILY 07/30/24 Unkn own History carbonate)-vitamin D3 10 mcg (400 unit) tablet (Calcium 600 + D(3)) clonazepam 0.5 mg tablet (Klonopin) 0.5 mg PO DAILY [place] anxiety 07/30/24 Unknown History dextroamphetamine 18 mg/9 hour 18 mg transdermal DAILY 07/30/24 Unknown History daily transdermal patch docusate sodium 100 mg capsule 100 mg PO DAILY 5 Unknown History (Colace) hydrochlorothiazide 12.5 mg tablet 12.5 mg PO DAILY Unknown History meloxicam 15 mg tablet 15 mg PO DAILY 07/30/24 Unkn own History trazodone 100 mg tablet 200 mg (2 x 100 mg) PO DAILY 30 09/02/24 Unknown Rx days #60 tabs fremanezumab-vfrm 225 mg/1.5 mL 225 mg (1.5 mL) subcut QMONTH #1.5 12/12/24 Unknown Rx subcutaneous auto-injector (Ajovy) mL gabapentin 600 mg tablet 600 mg PO TID 12/12/24 Unkno wn History ondansetron 4 mg disintegrating 4 mg PO TID PRN nausea and 12/12/24 Unknown Rx tablet vomiting #90 tabs rimegepant 75 mg disintegrating 75 mg PO DAILY PRN alicia trey 12/12/24 Unknown Rx tablet (Nurtec ODT) headache #16 tabs oxycodone-acetaminophen 5 mg-325 1 tab PO Q6H PRN pain 5 days #20 12/14/24 Unknown Rx mg tablet (Percocet) tabs Allergy/AdvReac Type Severity Reaction Status Date / Time No Known Allergies Allergy Verified 12/14/24 15:39 Family History Mother Breast cancer Diabetes Hypertension Father Diabetes Hypertension CVA (cerebral vascular accident) Brother Diabetes Surgical History History of surgery History of carpal tunnel release of both wrists History of D&C History of cholecystectomy History of tonsillectomy History of hysterectomy History of gastric bypass Social History Smoking Status: Never smoker second hand exposure: No details: socially substance use type: does not use caffeine: Yes Type: coffee Number of servings: 2 what type of physical activity do you participate in: none clotilde/nondenominational: Catholic seatbelt use: always ROS ROS ED ROS Narrative Denies recent illness. Constitutional Constitutional ED: Denies chills or fever(s) Eyes Eyes: Denies blurry vision ENT ENT ED: Denies ear pain Cardiovascular Cardiovascular: Denies chest pain or palpitations Respiratory/Chest Respiratory/Chest: Denies cough Gastrointestinal Gastrointestinal: Denies abdominal pain Genitourinary Genitourinary ED: Denies dysuria Musculoskeletal Musculoskeletal: Denies back pain Integumentary Denies abscess Neurologic Neurologic: Denies headache(s) Psychiatric Psychiatric: Denies anxiety or depression Endocrine Endocrinology: Denies cold intolerance Hematologic/Lymphatic Hematologic/Lymphatic: Denies easy bleeding, easy bruising or lymphadenopathy Allergic/Immunologic Allergic/Immunologic ED: Denies mouth swelling, tongue swelling or urticaria EXAM Physical Exam Narrative Exam Narrative: 54-year-old female sitting in a hallway chair due to current volume and acuity. Plan right wrist pain. Vital signs are stable afebrile. Pulse ox 100% on room air no hypoxia. H EENT exam pupils round react light. No sign of trauma to her face or scalp. Nontender no hematoma. No laceration. C-spine and neck nontender. Back and spine nontender. Lungs clear equal symmetric chest wall mild sternal tenderness. No ecchymosis or bruising. No subcu air or crepitus. . heart regular rhythm rate about 65 no murmur. Ribs nontender. Abdomen soft nontender. Pelvic girdle intact. Right wrist is tender and deformed. She has limited range of motion of the right wrist due to pain and swelling. She is able to wiggle her fingers. Skins intact. Appears have an obvious wrist fracture. Right elbow and shoulder nontender. Left upper extremity and both lower extremities are nontender. Neurologically she is awake alert. Answer questions following commands. GCS 15. Const Vital Signs: 12/14/24 15:40 Temperature 96.9 F L Temperature Source Temporal Pulse Rate 66 Respiratory Rate 20 H Blood Pressure 130/91 H Blood Pressure Mean 104 Pulse Ox 100 Oxygen Delivery Method Room Air Positive well nourished and well developed; Negative for cachectic, contractures or unkempt General Appearance ED: well developed; Negative for unkempt, cachectic, contractures, cyanotic, diaphoretic or NAD Nutritional Appearance: Negative for cachectic HEENT Reports moist mucous membranes normocephalic and atraumatic; Negative for trauma or tenderness Eyes PERRL and EOMs intact bilaterally Neck full ROM and supple Chest Wall inspection of chest normal and palpation of chest normal Chest Narrative: Mild chest wall tenderness to the sternum. No ecchymosis or bruising. No subcu air or crepitus. Resp normal respiratory effort and clear to auscultation bilaterally Auscultation: Negative for rales, rhonchi, wheezes or diminished lung sounds Cardio regular rate, regular rhythm, S1 normal heart sound, S2 normal heart sound and no murmurs Rate: Negative for bradycardia or tachycardic Rhythm: Negative for abnormal rhythm GI non-tender, non-distended and no masses Auscultation: normoactive bowel sounds Palpation: soft; Negative for tender, guarding or rebound tenderness present Back/Spine no CVA tenderness General Back: Negative for CVA tenderness Cervical Spine: Negative for cervical spine tenderness Thoracic Spine / Upper Back: Negative for thoracic spinal tenderness Lumbar Spine / Lower Back: Negative for lumbar spinal tenderness Extremity normal to inspection and full ROM Extremity Narrative: Except right wrist. Tender swollen. Limited flexion extension. Right hand neurovascularly intact. Skin intact. Normal radial pulse. Normal touch sensation. Neuro oriented x3, CN's II-XII intact bilaterally, moves all extremities, no focal m otor deficits and no sensory deficits noted Sensorium / Orientation: alert, oriented to person, oriented to place and oriented to time Motor Exam: strength 5/5 throughout Psych mental status grossly normal Appearance: Negative for unkempt Attitude: No agitated Mood & Affect: Negative for depressed, anxious or tearful Skin Lesions: no lesions Rashes: no rashes MDM MDM MDM Narrative Medical decision making narrative: 54-year-old female fell 2 feet from a ladder when she missed a step. Has a right wrist Colles' fracture. Close. Only reduced. She has been given morphine for pain and Zofran. She will be procedurally sedated with propofol to reduce the wrist in splint. I am obtaining a chest x-ray due to chest wall pain anteriorly. To rule out a sternal fracture or rib fracture. Patient doing well at 8:06 PM. Procedural sedation she is awake alert. Answ ering questions following commands. She will be discharged under procedural sedation protocol. Sling. There is a splint in place. There is a good reduction. She will follow-up with with Dr. Bhatia per her request of [facility] orthopedics. History & Record Review Discussion w/independent historian: Patient Additional record(s) reviewed:: Prior inpatient record, Prior outpatient record, Prior ED visit and Prior labs Lab Data Labs: Right wrist x-ray, 3 views, interpreted myself and the radiologist shows a distal radius and distal ulna displaced fractures. Consistent with a Colles' fracture. Postreduction wrist x-ray, fracture is much improved. Good reduction. Good alignment. There is still some mild displacement. 3 views interpreted by myself. Splint in place. I did go over the x-rays with the patient. Chest x-ray, 2 views, AP and lateral, interpreted by myself and radiologist shows no acute abnormality. Normal cardiac silhouette. Normal lung escobedo. No obvious sternal or rib fractures. No pneumothorax. Radiography Chest X-Ray - ED: 2 View, Read by ED Physician, Read by Radiologist, Normal, Heart, Lungs, Mediastinum, Bony Structures, No Acute Disease and Chronic Changes Diagnostic Testing: Clinical Impression(s) from Imaging Studies Wrist X-Ray 12/14/24 15:42 IMPRESSION: Colles fracture of distal radius with a distal ulnar metaphyseal fractures well Reading Location: [facility] Procedures Procedural Sedation 1 (Initial Baseline): Consent Signed: Yes Any Problems With Anesthesia: No You/Your family experience fever (hyperthermia) w/anesthesia: No Sedation medication: Propofol Dose: 90 Route: IV Total Moderate Sedation Units: 15 Maliampati Score: Class II ASA Classification: I Comment:: Patient was treated with propofol. Initially given 16 and 30 more for 90. I was able to manually reduce the right wrist. Flow easily. Child received and placed her in a well-padded short arm AP Ortho-Glass splint. Postreduction x- rays are being obtained. Discharge Plan Triage Chief Complaint: Upper Extremity Injury Other Complaint: Fall ED Provider: Vinny Deluna Dx/Rx/DC Orders Clinical Impression: Fall, Left wrist fracture Instructions: ED Fracture, Wrist, General Prescriptions: New oxycodone-acetaminophen [Percocet] 5-325 mg tablet 1 tab PO Q6H PRN (Reason: pain) 5 Days Qty: 20 0RF No Action montelukast 10 mg tablet 10 mg PO QHS Nurtec ODT 75 mg tablet,disintegrating 75 mg PO DAILY PRN (Reason: migraine headache) Qty: 16 4RF Ajovy Autoinjector 225 mg/1.5 mL auto-injector 225 mg SUBCUT QMONTH Qty: 1.5 6RF ondansetron 4 mg tablet,disintegrating 4 mg PO TID PRN (Reason: nausea and vomiting) Qty: 90 4RF gabapentin 600 mg tablet 600 mg PO TID multivitamin Tablet 1 tab PO DAILY meloxicam 15 mg tablet 15 mg PO DAILY calcium carbonate-vitamin D3 [Calcium 600 + D(3)] 600 mg-10 mcg (400 unit) tablet 1 tab PO DAILY clonazepam [Klonopin] 0.5 mg tablet 0.5 mg PO DAILY PRN (Reason: anxiety) hydrochlorothiazide 12.5 mg tablet 12.5 mg PO DAILY docusate sodium [Colace] 100 mg capsule 100 mg PO DAILY dextroamphetamine 18 mg/9 hour patch 24 hour 18 mg transdermal DAILY Rx Instructions: apply 2 hours prior to needed effect and remove after 9 hours fluoxetine 20 mg capsule 40 mg PO BID hydroxyzine HCl 25 mg tablet 25 mg PO TID PRN PRN (Reason: anxiety) lamotrigine 100 mg tablet 200 mg PO QHS quetiapine 200 mg tablet 200 mg PO QHS omeprazole 40 mg capsule,delayed release(DR/EC) 40 mg PO DAILY Loratadine-D 10-240 mg tablet extended release 24 hr 1 tab PO DAILY magnesium oxide 400 mg (241.3 mg magnesium) tablet 400 mg PO DAILY trazodone 100 mg tablet 200 mg PO DAILY 30 Days Qty: 60 1RF Primary Care Provider: Anamika Olmos Referrals: Isaak Bhatia MD [Non-Staff] - As soon as possible Care Physician,No Primary [Non-Staff] - Activity Restrictions/Additional Instructions: Ice and elevate your wrist to decrease pain and swelling. Motrin for pain and swelling. Percocet for more severe pain. Keep the splint on. Keep it dry and clean. Call Dr. Bhatia's office tomorrow. Get into be seen as soon as possible. No driving for the next 24 hours. Print Language: Paraguayan Disposition Disposition: Home, Self Care
[2024-12-14 18:17] VITALS: BP 177/89; PULSE 67; RESP 16; TEMP 36.7; O2SAT 100
[2024-12-14 19:38] VITALS: BP 165/101; BP 175/94; BP 179/96; BP 180/114; PULSE 61; PULSE 67; PULSE 68; RESP 16; RESP 18; RESP 19; O2SAT 100
[2024-12-14 19:46] VITALS: BP 185/98; PULSE 69; RESP 18; O2SAT 100
--- NOTE | 2024-12-14 19:50 | RAD_ITS ---
PROCEDURE: WRIST MIN 3 VIEWS 12/14/2024 REASON FOR EXAM: POST REDUCTION TECHNIQUE: WRIST MIN 3 VIEWS COMPARISON: Earlier same day 12/14/2024. FINDINGS: Interval closed reduction of previously described comminuted fractures of the distal radial and ulnar metaphyses, with intra-articular extension. Improved alignment of the dominant fracture fragments. Carpal alignment appears maintained. Soft tissue swelling about the wrist. Overlying fiberglass splint material. RAD/Wrist min 3 Views IMPRESSION: Interval closed reduction and splinting of aforementioned distal radial and uln ar metaphyseal intra-articular fractures, with improved osseous alignment. Reading Location: [id number]
[2024-12-14 19:51] VITALS: BP 185/96; PULSE 67; RESP 18; O2SAT 100
[2024-12-14 20:34] VITALS: BP 185/96; PULSE 67; RESP 18; TEMP 36.6; O2SAT 100
== END 2024-12-14 20:53 | disposition home or self-care (01) ==
PROVIDERS: Emergency Provider Emergency Medicine; PCP Internal Medicine; Visit Provider Emergency Medicine
DX: S52.532A Colles' fracture of left radius, initial encounter for closed fracture (principal); F33.2 Major depressive disorder, recurrent severe without psychotic features; I10 Essential (primary) hypertension; W11.XXXA Fall on and from ladder, initial encounter; Z90.710 Acquired absence of both cervix and uterus; Z79.899 Other long term (current) drug therapy; Z90.49 Acquired absence of other specified parts of digestive tract
CPT/HCPCS: 25605; 24600; 71046; 73110; 96374; 96375; 96376; 99152; 99285; A4216; J2405

== ENCOUNTER → 2025-01-06 | Outpatient (CLI) | payer MEDICAID, SELFPAY ==
[2025-01-06 10:40] LABS: Hematocrit 33.7 % (37-47); Hemoglobin 10.4 g/dL (12.0-15.0); Mean Corp Hgb Conc 30.9 g/dL (32-36); Mean Corpuscular Volume 83.6 fL (81-99); Mean Platelet Vol. 10.6 fl (6.2-12.0); Platelet Count 315 K/mm3 (150-450); RBC Distribution Width CV 17.3 % (11.6-14.6); RBC Distribution Width SD 52.9 fl (35.1-43.9); Red Blood Count 4.03 M/mm3 (4.2-5.4); White Blood Count 5.3 K/mm3 (4.4-11.0)
[2025-01-06 11:40] LABS: Ammonia 43.0 umol/L (11-51)
[2025-01-06 11:48] LABS: AST(SGOT) 30 U/L (<=31); Alanine Aminotransfer ALT/SGPT 21 U/L (<=34); Albumin, Serum 4.1 g/dL (3.5-5.0); Alkaline Phosphatase 93 U/L (35-104); Anion Gap 12 (5-15); BUN 11 mg/dL (4-19); BUN/Creat Ratio 13.8 RATIO (10-20); Calcium,Total 9.0 mg/dL (7.6-11.0); Carbon Dioxide 24.7 mmol/L (21.0-32.0); Chloride 103 mmol/L (98-108); Ferritin 23 ng/mL (22-378); Globulin 2.8 g/dL (2.2-4.2); Glucose 79 mg/dL (70-99); Potassium 4.2 mmol/L (3.3-5.1); Vitamin B12 845 pg/mL (180-914)
[2025-01-06 12:05] LABS: Iron 36 ug/dL (50-170); Magnesium 2.2 mg/dL (1.5-2.2)
[2025-01-09 13:09] LABS: Folate, Hemolysate Test 528.0 ng/mL (Not Estab.); Folate, RBC (Hct) Test 33.5 % (34.0-46.6); Folates, RBC Test 1576 ng/mL (>498); Vitamin B1, Thiamine 111.8 nmol/L (66.5-200.0)
[2025-01-11 12:09] LABS: Vitamin D 1,25-Dihydroxy 76.4 pg/mL (24.8-81.5)
== END | disposition home or self-care (01) ==
LOC: MTLAB 08:59
PROVIDERS: PCP Internal Medicine; Referring Provider Psychiatry & Neurology Neurology; Visit Provider Psychiatry & Neurology Neurology
DX: G43.009 Migraine without aura, not intractable, without status migrainosus (principal); F33.2 Major depressive disorder, recurrent severe without psychotic features; M79.7 Fibromyalgia; Z86.2 Personal history of diseases of the blood and blood-forming organs and certain disorders involving the immune mechanism
CPT/HCPCS: 36415; 80053; 82140; 82607; 82652; 82728; 82747; 83540; 83735; 84425; 84443; 85014; 85027

== ENCOUNTER → 2025-02-24 | Outpatient (CLI) | payer MEDICAID, SELFPAY ==
--- NOTE | 2025-02-24 10:47 | BD_ITS ---
PROCEDURE: DEXA BONE DENSITY STUDY 02/24/2025 REASON FOR EXAM: MULTIPLE FRACTURES F, age 54 y/o . Postmenopausal. TECHNIQUE: Procedure Code: BDDBD Modality: DX Procedure: DEXA BONE DENSITY STUDY COMPARISON: None FINDINGS: BMD and T-SCORES Lumbar spine: 0.853 g/cm2, T-score -1.8 Levels: L1 through L4 Left femoral neck: 0.648 g/cm2, T-score -1.8 Femoral neck comparison data not recommended for monitoring change. Left total hip: 0.763 g/cm2, T-score -1.5 Right femoral neck: 0.626 g/cm2, T-score -2.0 Femoral neck comparison data not recommended for monitoring change. Right total hip: 0.729 g/cm2, T-score -1.7 The World Health Organization has defined the following categories based on bone density: Normal bone density: T-score equal to or greater than -1.0 Osteopenia: T-score between -1.0 and -2.5 Osteoporosis: T-score equal to or less than -2.5 FRAX (or Comparable) Fracture Risk Assessment: 10 Year Probability of Fracture: Major Osteoporotic Fracture: 12th% Hip Fracture: 1.5% (Note: FRAX is not to be reported in setting of normal range bone density, osteoporosis on DEXA, known history of osteoporosis, prior osteoporotic hip or vertebral fracture, or for any patient undergoing pharmacological treatment for bone loss.) The National Osteoporosis Foundation (NOF) recommends pharmacological treatment for patients with a FRAX 10-year risk of 3% or higher for a hip fracture, or 20% or higher for a major osteoporotic fracture, to prevent osteoporosis and reduce fracture risk. The patient does meet the pharmacological treatment recommendations for prevention of osteoporosis. BD/Dexa Bone Density Study IMPRESSION: OSTEOPENIA. Recommend follow-up as clinically warranted. Reading Location: [place] [id number]
== END | disposition home or self-care (01) ==
LOC: OPBD 10:40
PROVIDERS: PCP Internal Medicine; Referring Provider Psychiatry & Neurology Neurology; Visit Provider Psychiatry & Neurology Neurology
DX: Z78.0 Asymptomatic menopausal state (principal); Z87.81 Personal history of (healed) traumatic fracture
CPT/HCPCS: 77080